=== PATIENT | male | born 1955 | race African-American/Black ===

== ENCOUNTER 2016-10-21 11:43 | Emergency (ER) | payer MEDICARE ==
[~2016-10-21] VITALS: Ht 190.5 cm; Wt 106.6 kg
[~2016-10-21 11:43] MED LIST: AMLO10TA2 PO; METO25TA9 PO; OMEP20CA9 PO; VALS320T2 PO
[2016-10-21] MEDS ORDERED: IV NORMAL SALINE 1000ML BAG 1,000 ML IV ONE (12:15)
[2016-10-21 12:25] LABS: BASO # 0.1 x10^3/uL (0.0-0.2); BASO % 1 % (0-3); EOS % 1 % (0-3); HEMATOCRIT 54.5 % (39.0-53.0); HEMOGLOBIN 17.9 g/dL (13.0-17.5); LYMPH # 2.4 x10^3/uL (1.0-4.8); LYMPH % 28 % (24-48); MEAN CORPUSCULAR HEMOGLOBIN 29 pg (25-35); MEAN CORPUSCULAR HGB CONC 33 g/dL (31-37); MEAN CORPUSCULAR VOLUME 87 fL (79-100); MONO % 7 % (0-9); NEUT % 63 % (31-73); PLATELET COUNT 164 x10^3/uL (140-400); RED BLOOD COUNT 6.27 x10^6/uL (4.30-5.70); RED CELL DISTRIBUTION WIDTH 14.6 % (11.5-14.5); WHITE BLOOD COUNT 8.5 x10^3/uL (4.0-11.0)
[2016-10-21 12:37] LABS: CALCIUM 9.3 mg/dL (8.5-10.1); CREATININE 1.3 mg/dL (0.7-1.3); GFR 67.9; POTASSIUM 4.3 mmol/L (3.5-5.1)
[2016-10-21 12:43] LABS: ALBUMIN 3.7 g/dL (3.4-5.0); ALBUMIN/GLOBULIN RATIO 0.8 (1.0-1.7); TOTAL BILIRUBIN 0.8 mg/dL (0.2-1.0); TOTAL PROTEIN 8.1 g/dL (6.4-8.2)
--- NOTE | 2016-10-21 12:47 | RAD ---
Portable AP upright view CXR: Clinical indications: Dizziness and lightheadedness today. Comparison: February 14, 2004 Findings: No acute lung infiltrate or pleural effusion or pulmonary edema or lung mass or pneumothorax is seen. The heart size, pulmonary vasculature, mediastinum and both boubacar are unremarkable. Impression: No acute radiographic abnormality is seen.
--- NOTE | 2016-10-21 13:01 | ED.ADGEN ---
Past Medical History Past Medical History: GERD, Hypertension, Other Additional Past Medical Histor: "Adnoid trouble" Past Surgical History: Other Additional Past Surgical Histo: Cyst near L)eyebrow removed x2. Additional Information: 1 TO 2 PPD Alcohol Use: Occasionally Drug Use: None Adult General Chief Complaint Chief Complaint: DIZZY/LIGHT HEADED HPI HPI Patient is a 61 year old man, history of hypertension, GERD, who presents to the emergency department with a complaint of lightheadedness and dizziness that began yesterday. Patient states that he was out of the heat yesterday, had been helping a friend [place], states that he had eaten fried chicken, not had anything to drink throughout the day, and began feeling progressively more lightheaded and dizzy. He states he did drink water that evening and afternoon, however he remains dizzy today, describes it as a spinning of the room, also a lightheaded sensation denies any passing out. Some mild shortness of breath as well, which is now resolved, denies any chest pain, any nausea or vomiting, any focal weakness, numbness or tingling. States he is concerned that he has had a "mini stroke", as he is "run in my family". Denies any vision changes, states he did have a mild headache which is improved at this time. States he has been compliant with all of his medications for both a pressure and GERD. Denies any injuries, syncope, any use of drugs, or alcohol, is a pack-a-day smoker for many years. Review of Systems Review of Systems Constitutional: Denies fever or chills. [] Generalized malaise and weakness. Lightheadedness. Eyes: Denies change in visual acuity. [] HENT: Denies nasal congestion or sore throat. [] Respiratory: Denies cough, mild shortness of breath now resolved. Cardiovascular: Denies chest pain or edema. [] GI: Denies abdominal pain, nausea, vomiting, bloody stools or diarrhea. [] : Denies dysuria. [] Musculoskeletal: Denies back pain or joint pain. [] Integument: Denies rash. [] Neurologic: Mild headache, frontal, dizziness, no focal weakness or sensory changes. [] Endocrine: Denies polyuria or polydipsia. [] Lymphatic: Denies swollen glands. [] Psychiatric: Denies depression or anxiety. [] Current Medications Current Medications Current Medications Medications (Trade) Dose Ordered Sig/Tameka Start Time Stop Time Status Last Admin Dose Admin Meclizine HCl (Antivert) 25 mg 1X ONCE 10/21/16 15:45 10/21/16 15:46 DC 10/21/16 15:40 25 MG Sodium Chloride 1,000 ml @ 1,000 mls/hr 1X ONCE 10/21/16 12:15 10/21/16 13:14 DC 10/21/16 12:21 1,000 MLS/HR Allergies Allergies Allergies Coded Allergies Type Severity Reaction Last Updated Verified penicillin Allergy Intermediate Hives. 08/11/15 Yes Physical Exam Physical Exam Constitutional: Well developed, well nourished, no acute distress, non-toxic appearance. [] HENT: Normocephalic, atraumatic, bilateral external ears normal, oropharynx moist, no oral exudates, nose normal. [] Eyes: PERRLA, EOMI, conjunctiva normal, no discharge. [] Neck: Normal range of motion, no tenderness, supple, no stridor. [] Cardiovascular:Heart rate regular rhythm, no murmur, S1, S2, no rubs or gallops. [] Lungs & Thorax: Bilateral breath sounds clear to auscultation, no wheezing, rhonchi, rales. No chest wall crepitus or tenderness. [] Abdomen: Bowel sounds normal, soft, no tenderness, no rebound, rigidity, no guarding, no masses, no pulsatile masses. [] Skin: Warm, dry, no erythema, no rash. [] Back: No tenderness, no CVA tenderness. [] Extremities: No tenderness, no cyanosis, no clubbing, ROM intact, no edema. Negative Homans sign. [] Neurologic: Alert and oriented X 3, normal motor function, normal sensory function, no focal deficits noted. [] Psychologic: Affect normal, judgement normal, mood normal. [] Current Patient Data Vital Signs Vital Signs Date Time Temp Pulse Resp B/P (MAP) Pulse Ox O2 Delivery O2 Flow Rate FiO2 10/21/16 15:20 60 138/82 (100) 94 Room Air 10/21/16 11:53 97.5 18 97.5 Lab Values Laboratory Tests Test 10/21/16 12:13 10/21/16 14:30 White Blood Count 8.5 x10^3/uL (4.0-11.0) Red Blood Count 6.27 x10^6/uL (4.30-5.70) H Hemoglobin 17.9 g/dL (13.0-17.5) H Hematocrit 54.5 % (39.0-53.0) H Mean Corpuscular Volume 87 fL (79-100) Mean Corpuscular Hemoglobin 29 pg (25-35) Mean Corpuscular Hemoglobin Concent 33 g/dL (31-37) Red Cell Distribution Width 14.6 % (11.5-14.5) H Platelet Count 164 x10^3/uL (140-400) Neutrophils (%) (Auto) 63 % (31-73) Lymphocytes (%) (Auto) 28 % (24-48) Monocytes (%) (Auto) 7 % (0-9) Eosinophils (%) (Auto) 1 % (0-3) Basophils (%) (Auto) 1 % (0-3) Neutrophils # (Auto) 5.3 x10^3uL (1.8-7.7) Lymphocytes # (Auto) 2.4 x10^3/uL (1.0-4.8) Monocytes # (Auto) 0.6 x10^3/uL (0.0-1.1) Eosinophils # (Auto) 0.1 x10^3/uL (0.0-0.7) Basophils # (Auto) 0.1 x10^3/uL (0.0-0.2) Sodium Level 138 mmol/L (136-145) Potassium Level 4.3 mmol/L (3.5-5.1) Chloride Level 103 mmol/L (98-107) Carbon Dioxide Level 24 mmol/L (21-32) Anion Gap 11 (6-14) Blood Urea Nitrogen 25 mg/dL (8-26) Creatinine 1.3 mg/dL (0.7-1.3) Estimated GFR (Cockcroft-Gault) 67.9 BUN/Creatinine Ratio 19 (6-20) Glucose Level 142 mg/dL (70-99) H Calcium Level 9.3 mg/dL (8.5-10.1) Total Bilirubin 0.8 mg/dL (0.2-1.0) Aspartate Amino Transferase (AST) 19 U/L (15-37) Alanine Aminotransferase (ALT) 19 U/L (16-63) Alkaline Phosphatase 141 U/L (46-116) H Myoglobin 74 ng/mL (16-96) Troponin I Quantitative < 0.017 ng/mL (0.000-0.055) YE-Jqq-I-Type Natriuretic Peptide 37 pg/mL (0-124) Total Protein 8.1 g/dL (6.4-8.2) Albumin 3.7 g/dL (3.4-5.0) Albumin/Globulin Ratio 0.8 (1.0-1.7) L Urine Collection Type Void Urine Color Yellow Urine Clarity Clear Urine pH 5.5 Urine Specific [place] 1.025 Urine Protein Negative mg/dL (NEG-TRACE) Urine Glucose (UA) Negative mg/dL (NEG) Urine Ketones (Stick) Negative mg/dL (NEG) Urine Blood Negative (NEG) Urine Nitrite Negative (NEG) Urine Bilirubin Negative (NEG) Urine Urobilinogen Dipstick 1.0 mg/dL (0.2 mg/dL) Urine Leukocyte Esterase Negative (NEG) Urine RBC 0 /HPF (0-2) Urine WBC 0 /HPF (0-4) Urine Squamous Epithelial Cells None /LPF Urine Bacteria 0 /HPF (0-FEW) Urine Hyaline Casts Few /HPF Urine Mucus Mod /LPF Urine Opiates Screen Neg (NEG) Urine Methadone Screen Neg (NEG) Urine Barbiturates Neg (NEG) Urine Phencyclidine Screen Neg (NEG) Urine Amphetamine/Methamphetamine Neg (NEG) Urine Benzodiazepines Screen Neg (NEG) Urine Cocaine Screen Pos (NEG) Urine Cannabinoids Screen Neg (NEG) Urine Ethyl Alcohol Neg (NEG) Laboratory Tests 10/21/16 12:13 Laboratory Tests 10/21/16 12:13 EKG EKG EC: Sinus rhythm, heart rate 77 beats/minute, left axis deviation, QTC of 452, ME 186, QRS of 80 [] 98, no ST elevations or depressions, contour abnormality is noted in the inferior anterior lateral leads, T-wave inversions noted in V3 through V6, abnormal ECG. Does not meet STEMI criteria. As interpreted by me. Radiology/Procedures Radiology/Procedures [][facility] [address] [place] [address] IMAGING REPORT Signed PATIENT: SHAWNEE ESPINOZA ACCOUNT: [id number] : 1955 LOCATION: ER AGE: 61 SEX: M EXAM STATUS: PRE ER ORD. PHYSICIAN: ASUNCION BOND DO REASON: Dizziness/lightheadness PROCEDURE: PORTABLE CHEST 1V Portable AP upright view CXR: Clinical indications: Dizziness and lightheadedness today. Comparison: February 14, 2004 Findings: No acute lung infiltrate or pleural effusion or pulmonary edema or lung mass or pneumothorax is seen. The heart size, pulmonary vasculature, mediastinum and both boubacar are unremarkable. Impression: No acute radiographic abnormality is seen. DICTATED and SIGNED BY: FLORECITA NASH MD DATE: 10/21/16 124 CC: CLEMENTINA TORRES; ASUNCION BOND DO ~ [facility] [address] [place], [place] [id number] IMAGING REPORT Signed PATIENT: SHAWNEE ESPINOZA ACCOUNT: [id number] : 1955 LOCATION: ER AGE: 61 SEX: M EXAM STATUS: REG ER ORD. PHYSICIAN: ASUNCION BOND DO REASON: Dizziness PROCEDURE: CT HEAD WO CONTRAST Clinical indications: Dizziness today. History of hypertension. Technique: Noncontrast axial cross sectional scanning of the head was performed. PQRS Compliance Statement: One or more of the following individualized dose reduction techniques were utilized for this examination: 1. Automated exposure control 2. Adjustment of the mA and/or kV according to patient size 3. Use of iterative reconstruction technique Findings: No acute intracranial hemorrhage or midline shift or mass-effect or hydrocephalus or extra-axial fluid collection is seen. There is a moderate-sized old appearing infarct of the anterior basal ganglia and anterior limb of the internal capsule and the caudate nucleus and anterior centrum semiovale and anterior mane radiata on the right side. Additional areas of mild periventricular white matter hypodensity are seen consistent with chronic small vessel ischemic disease in this age group. A tiny infarct of the left thalamus is seen of indeterminate age. No skull fracture or pneumocephalus is seen. No opacification of the mastoid sinuses or the middle ear cavities is seen. There is a mucous retention cyst of the floor of the left maxillary sinus which measures 2.9 cm. The maxillary sinuses are not completely seen in this study. Impression: No acute intracranial hemorrhage is seen. 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 Tiny infarct of the left thalamus of indeterminate age. DICTATED and SIGNED BY: FLORECITA NASH MD DATE: 10/21/16 1864 CC: CLEMENTINA TORRES; ASUNCION BOND DO ~ Course & Med Decision Making Course & Med Decision Making Pertinent Labs and Imaging studies reviewed. (See chart for details) [] NIH stroke scale of 0 at this time, patient states that he is already feeling better. After discussion at bedside, will proceed with laboratory studies, and imaging of the head, to rule out potential occult abnormality. Chest x-ray also ordered. ECG obtained, with no acutely concerning findings. Patient received IV fluids in the ED. Resting comfortably. CT of the head reveals chronic changes, from CVA, and an indeterminately age small thalamic infarct. No acutely concerning findings identified. Patient's urinalysis is positive for cocaine. Patient did initially deny any drug use. I did speak to the patient, who stated that "I'm not embarrassed I do cocaine, I have done it since the 80s". I did discuss the patient that the drug screen in the emergency department was not attempted to embarrassed him, however it is pertinent as cocaine and other illicit substances have significant detrimental effects, and could cause heart attack stroke or other significant morbidity or mortality. Patient states he understands, states he is feeling well this time with resolution of his symptoms. I did discuss findings as above and examination with Dr. Pike of neurology, patient is not exhibiting any acutely concerning findings at this time, is ambulating without difficulty, and denies any complaints currently, he recommends follow-up with his primary care provider , continue education regarding drug abuse wrist, and use of meclizine. Patient did receive meclizine in the ED, as stated is ambulating without difficulty with resolution of his symptoms. Patient discharged home with clear and detailed return instructions, to stay well-hydrated, get plenty of rest, continue his home medications as directed by his primary care provider, as well as precautions with plan as above and prescription for meclizine. Rajivon Disclaimer Rajivon Disclaimer This electronic medical record was generated, in whole or in part, using a voice recognition dictation system. Departure Impression: Primary Impression: Dizziness Additional Impression: Cocaine abuse Disposition: HOME, SELF-CARE Condition: IMPROVED Scripts Meclizine Hcl (MECLIZINE HCL) 25 Mg Tablet 1 TAB PO PRN TID Y for DIZZINESS, #12 TAB Prov: ASUNCION BOND DO 10/21/16 Problem Qualifiers ASUNCION BOND DO Oct 21, 2016 13:01
--- NOTE | 2016-10-21 13:32 | RAD ---
Clinical indications: Dizziness today. History of hypertension. Technique: Noncontrast axial cross sectional scanning of the head was performed. RS Compliance Statement: One or more of the following individualized dose reduction techniques were utilized for this examination: 1. Automated exposure control 2. Adjustment of the mA and/or kV according to patient size 3. Use of iterative reconstruction technique Findings: No acute intracranial hemorrhage or midline shift or mass-effect or hydrocephalus or extra-axial fluid collection is seen. There is a moderate-sized old appearing infarct of the anterior basal ganglia and anterior limb of the internal capsule and the caudate nucleus and anterior centrum semiovale and anterior mane radiata on the right side. Additional areas of mild periventricular white matter hypodensity are seen consistent with chronic small vessel ischemic disease in this age group. A tiny infarct of the left thalamus is seen of indeterminate age. No skull fracture or pneumocephalus is seen. No opacification of the mastoid sinuses or the middle ear cavities is seen. There is a mucous retention cyst of the floor of the left maxillary sinus which measures 2.9 cm. The maxillary sinuses are not completely seen in this study. Impression: No acute intracranial hemorrhage is seen. 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 Tiny infarct of the left thalamus of indeterminate age.
[2016-10-21 14:42] LABS: BILIRUBIN,URINE NEGATIVE (NEG); GLUCOSE,URINE NEGATIVE (NEG); NITRITE,URINE NEGATIVE (NEG); PH,URINE 5.5; PROTEIN,URINE NEGATIVE (NEG-TRACE)
[2016-10-21 14:49] LABS: BACTERIA,URINE 0 /HPF (0-FEW); BARBITURATES NEG (NEG); BENZODIAZEPINES NEG (NEG); CANNABINOIDS NEG (NEG); COCAINE POS (NEG); METHADONE NEG (NEG); OPIATES NEG (NEG); PHENCYCLIDINE NEG (NEG); RBC,URINE 0 /HPF (0-2); WBC,URINE 0 /HPF (0-4)
[2016-10-21 15:20] VITALS: BP 138/82
[2016-10-21] MEDS ORDERED: MECLIZINE HCL 12.5 MG TABLET. PO ONE (15:45)
[2016-10-21] MEDS ORDERED: MECL25TA3 PO (15:53)
--- NOTE | 2016-10-22 09:16 | EKG ---
[facility] [address] [place] [address] Test Date: 2016-10-21 Test Time: 11:56:08 Pat Name: SHAWNEE ESPINOZA Department: Room: Gender: M Developmental Behavioral Physician: : 1955 Requested By: ASUNCION BOND Order Number: [id number] Reading MD: Samuel Nice Measurements Intervals [place] Rate: 77 P: 40 MO: 186 QRS: -40 QRSD: 98 T: 19 QT: 398 QTc: 452 Interpretive Statements SINUS RHYTHM ABNORMAL LEFT AXIS DEVIATION LEFT ANTERIOR FASCICULAR BLOCK T ABNORMALITY IN ANTEROLATERAL LEADS Electronically Signed On 10-22-2016 15:08:09 CDT by Samuel Nice
== END 2016-10-21 16:00 | disposition home or self-care (01) ==
LOC: ER 11:43
DX: R42 Dizziness and giddiness (principal); F14.10 Cocaine abuse, uncomplicated; R06.02 Shortness of breath; R51 Headache; I10 Essential (primary) hypertension; K21.9 Gastro-esophageal reflux disease without esophagitis; F17.200 Nicotine dependence, unspecified, uncomplicated; Z88.0 Allergy status to penicillin
CPT/HCPCS: 36415; 70450; 71010; 80053; 80307; 81001; 83874; 83880; 84484; 85027; 93005; 96360; 96361; 99285; J7030; J8597; G0479

== ENCOUNTER 2018-07-22 14:39 | Emergency (ER) | payer OTHER ==
[~2018-07-22] VITALS: Ht 188 cm; Wt 106.6 kg
[~2018-07-22 14:39] MED LIST changes: -AMLO10TA2 PO; +AMLO10TA8 PO; +MECL25TA3 PO; +METO-239 PO; -METO25TA9 PO; +OMEP20CA10 PO; -OMEP20CA9 PO
[2018-07-22 15:30] VITALS: BP 139/96
[2018-07-22] MEDS ORDERED: LIDOCAINE 1% PF 2 ML VIAL. INJ ONE (15:45)
[2018-07-22] MEDS ORDERED: CEPH500C PO (15:54)
--- NOTE | 2018-07-22 15:55 | PHYS DOC ---
Past Medical History Past Medical History: GERD, Hypertension, Other Additional Past Medical Histor: "Adnoid trouble" (YAJAIRA JOHNSON APRN) Past Surgical History: Other Additional Past Surgical Histo: Cyst near L)eyebrow removed x2. (YAJAIRA JOHNSON APRN) Alcohol Use: Occasionally Drug Use: None (YAJAIRA JOHNSON APRN) Adult General Chief Complaint Chief Complaint: FOOT INJURY PAIN [facility] HPI Patient is a 62 year old male presents for evaluation of possible ingrown toenail on his left foot, fourth toe. States that he tried to make an appointment of the maintenance service technician today but was told because he has not seen his primary care doctor within the past 6 months they would not see him. He has very thick toenails and reports he uses wire cutters to cut his toenails at home. Denies any drainage from around the toenail of the left foot. Tetanus is up-to-date. (YAJAIRA JOHNSON APRN) Review of Systems Review of Systems Constitutional: Denies fever or chills [] Eyes: Denies change in visual acuity, redness, or eye pain [] HENT: Denies nasal congestion or sore throat [] Respiratory: Denies cough or shortness of breath [] Cardiovascular: No additional information not addressed in HPI [] GI: Denies abdominal pain, nausea, vomiting, bloody stools or diarrhea [] : Denies dysuria or hematuria [] Musculoskeletal: 4TH LEFT TOENAIL THICKENED, FUNGUS, ERYTHEMA AROUND EPONYCHIUM. ALL TOENAILS ARE THICKENED AND LONG [] Integument: Denies rash or skin lesions [] Neurologic: Denies headache, focal weakness or sensory changes [] Endocrine: Denies polyuria or polydipsia [] All other systems were reviewed and found to be within normal limits, except as documented in this note. (YAJAIRA JOHNSON APRN) Current Medications Current Medications Current Medications Medications (Trade) Dose Ordered Sig/Tameka Start Time Stop Time Status Last Admin Dose Admin Lidocaine HCl (Xylocaine-Mpf 1% 2ml Vial) 2 ml 1X ONCE 07/22/18 15:45 07/22/18 15:46 DC 07/22/18 15:43 2 ML (JOHAN VASQUEZ MD) Allergies Allergies Allergies Coded Allergies Type Severity Reaction Last Updated Verified penicillin Allergy Intermediate Hives. 08/11/15 Yes (JOHAN VASQUEZ MD) Physical Exam Physical Exam Constitutional: Well developed, well nourished, no acute distress, non-toxic appearance. [] Skin: Warm, dry, no rash. [] Extremities: LEFT TOE PARONYCHIA AROUND NAIL, NO FLUCTUANCE OR DRAINAGE NOTED ON EXAM, FUNGAL THICKENED TOENAILS, no cyanosis, no clubbing, ROM intact, no edema. [] Neurologic: Alert and oriented X 3, normal motor function, normal sensory function, no focal deficits noted. [] Psychologic: Affect normal, judgement normal, mood normal. [] (YAJAIRA JOHNSON APRN) Current Patient Data Vital Signs Vital Signs Date Time Temp Pulse Resp B/P (MAP) Pulse Ox O2 Delivery O2 Flow Rate FiO2 07/22/18 15:30 98.4 53 18 139/96 (110) 94 Room Air 98.4 (JOHAN VASQUEZ MD) EKG EKG [] (YAJAIRA JOHNSON APRN) Radiology/Procedures Radiology/Procedures [] (YAJAIRA JOHNSON APRN) Impressions: Incision and drainage paronychia left fourth toenail, 1 mL lidocaine injected, small incision made with 11 blade scalpel, no drainage, dressing placed (YAJAIRA JOHNSON APRN) Course & Med Decision Making Course & Med Decision Making Pertinent Labs and Imaging studies reviewed. (See chart for details) [Patient was referred for follow-up with podiatry, stable for discharge home] (YAJAIRA JOHNSON APRN) Course & Med Decision Making Staff Physician Addendum: I was working in the ER during the course of this patient's visit. I was available for consultation as needed, but I was not directly involved in the care of this patient. (JOHAN VASQUEZ MD) Dragon Disclaimer Dragon Disclaimer This electronic medical record was generated, in whole or in part, using a voice recognition dictation system. (YAJAIRA JOHNSON APRN) Departure Departure Impression: Primary Impression: Paronychia Disposition: 01 HOME, SELF-CARE Condition: STABLE Referrals: CLEMENTINA TORRES (PCP) Patient Instructions: Paronychia, [id number] Scripts Cephalexin (CEPHALEXIN) 500 Mg Capsule 1 CAP PO TID for 7 Days, #21 CAP Prov: YAJAIRA JOHNSON FIELD OPERATIONS FARM MANAGER 07/22/18 YAJAIRA JOHNSON FIELD OPERATIONS FARM MANAGER Jul 22, 2018 15:55 JOHAN VASQUEZ MD Jul 23, 2018 18:40
== END 2018-07-22 16:12 | disposition home or self-care (01) ==
LOC: ER 14:39
DX: L03.032 Cellulitis of left toe (principal); I10 Essential (primary) hypertension; K21.9 Gastro-esophageal reflux disease without esophagitis; Z88.0 Allergy status to penicillin
CPT/HCPCS: 10060; 99283

== ENCOUNTER 2021-02-07 06:23 | Inpatient (IN) | payer MEDICARE, OTHER ==
[~2021-02-07] VITALS: Ht 188 cm; Wt 93.4 kg
[~2021-02-07 06:23] MED LIST changes: +AMLO-187 PO; -AMLO10TA8 PO; +CEPH500C PO; +MECL-75 PO; -MECL25TA3 PO; -OMEP20CA10 PO; +OMEP20CA16 PO
--- NOTE | 2021-02-07 07:11 | RAD ---
XR CHEST 1V Clinical Indication: Reason: soa, dizzy when lying flat / Spl. Instructions: / History: Comparison: AP chest October 21, 2016. Findings: The cardiomediastinal silhouette is normal. There are diffuse bilateral interstitial opacities. There are Jacqueline B lines in the right lung base. There is no pneumothorax. No pleural effusion is apprecia aashish. No acute bone abnormality. IMPRESSION: Diffuse bilateral interstitial opacities may be pulmonary edema. Interstitial pneumonia a secondary c onsideration. Electronically signed by: Raúl Gray MD (02/07/2021 7:08 AM) [facility]
[2021-02-07 07:20] LABS: INFLUENZA A PATIENT NEGATIVE (NEGATIVE); INFLUENZA B PATIENT NEGATIVE (NEGATIVE)
--- NOTE | 2021-02-07 07:30 | PHYS DOC ---
Past Medical History Past Medical History: GERD, Hypertension, Other Additional Past Medical Histor: "Adnoid trouble" Past Surgical History: Other Additional Past Surgical Histo: Cyst near L)eyebrow removed x2, skin graft to leg Smoking Status: Current Every Day Smoker Additional Information: 2 ppd Alcohol Use: None Drug Use: None Social History Narrative: occasional use General Adult EDM: Chief Complaint: SHORTNESS OF BREATH HPI: HPI: 65-year-old male past medical history of COPD and hypertension, presents the ED with complaints of shortness of breath for the past week, worse when lying down on his left side. Also reports intermittent episodes of dizziness, productive cough and nasal congestion. Patient is not vaccinated for Covid. Review of Systems: Review of Systems: Constitutional: Denies fever or chills. [] Eyes: Denies change in visual acuity. [] HENT: Denies rhinorrhea or sore throat. [] Respiratory: Denies hemoptysis or dry cough Cardiovascular: Denies chest pain or edema. [] GI: Denies abdominal pain, nausea, vomiting, bloody stools or diarrhea. [] : Denies dysuria or hematuria Musculoskeletal: Denies back pain or joint pain. [] Integument: Denies rash or diaphoresis Neurologic: Denies headache, focal weakness or sensory changes. [] Endocrine: Denies polyuria or polydipsia. [] Lymphatic: Denies swollen glands. [] Psychiatric: Denies depression or anxiety. [] Heart Score: C/O Chest Pain: No Risk Factors: Risk Factors: DM, Current or recent (<one month) smoker, HTN, HLP, family history of CAD, obesity. Risk Scores: Score 0 - 3: 2.5% MACE over next 6 weeks - Discharge Home Score 4 - 6: 20.3% MACE over next 6 weeks - Admit for Clinical Observation Score 7 - 10: 72.7% MACE over next 6 weeks - Early Invasive Strategies Allergies: Allergies: Allergies Coded Allergies Type Severity Reaction Last Updated Verified penicillin Allergy Intermediate Hives. 02/07/21 Yes Physical Exam: PE: Constitutional: Well developed, well nourished, no acute distress, non-toxic appearance, hypertensive HENT: Normocephalic, atraumatic, Eyes: EOMI, conjunctiva normal, no discharge. Neck: Normal range of motion, supple, Cardiovascular: S1/2 present, regular rhythm Lungs & Thorax: Speaking in full sentences, bilateral equal chest rise, no tachypnea or increased work of breathing Abdomen: soft, no tenderness, Skin: Warm, dry, no erythema, no rash. [] Back: No tenderness, no CVA tenderness. [] Extremities: No tenderness, no cyanosis, no unilateral lower extremity edema Neurologic: Alert and oriented X 3, normal motor function, normal sensory function, no focal deficits noted. [] Psychologic: Affect normal, judgement normal, mood normal. [] Current Patient Data: Labs: Laboratory Tests Test 02/07/21 06:55 Influenza Type A Antigen Negative (NEGATIVE) Influenza Type B Antigen Negative (NEGATIVE) Vital Signs: Vital Signs Date Time Temp Pulse Resp B/P (MAP) Pulse Ox O2 Delivery O2 Flow Rate FiO2 02/07/21 07:04 75 28 190/117 (141) 93 Room Air 02/07/21 06:57 97.4 97.4 EKG: EK bigeminy present, sinus rhythm 75 bpm, no axis deviation, QTC 479, cannot appreciate any ST or ST depressions, T wave inversion V4 through V6, I & aVL 0650 bigeminy present, sinus rhythm at 74 bpm, no axis deviation, QTC 488, T wave inversion V4 through V6, 1 and aVL, cannot appreciate any ST depressions or ST depressions Radiology/Procedures: Radiology/Procedures: []IMAGING REPORT Signed [id number] : 1955 LOCATION: ER AGE: 65 SEX: M EXAM STATUS: REG ER ORD. PHYSICIAN: MARLYS RIOS DO REASON: DIZZINESS PROCEDURE: CT HEAD WO CONTRAST EXAM: CT head without contrast INDICATION: Dizziness COMPARISON: CT head 10/21/2016 TECHNIQUE: Axial CT imaging through the head without intravenous contrast. One or more of the following individualized dose reduction techniques were utilized for this examination: 1. Automated exposure control 2. Adjustment of the mA and/or kV according to patient size 3. Use of iterative reconstruction technique. FINDINGS: The ventricles and sulci are prominent. There is unchanged mild periventricular and deep white matter hypoattenuation. Unchanged old lacunar infarct in the right basal ganglia. No intracranial hemorrhage, acute infarct, or mass lesion. There is a mucosal retention cyst in the left maxillary sinus. Mild mucosal thickening in the right maxillary sinus. Mastoid air cells are clear. The calvarium is intact. Globes and orbits are intact. IMPRESSION: 1. No acute intracranial abnormality. 2. Unchanged mild volume loss and and chronic microvascular ischemic changes. Electronically signed by: Joleen Huff MD (02/07/2021 7:59 AM) [facility] DICTATED and SIGNED BY: JOLEEN HUFF MD DATE: 02/07/21 [id number] IMAGING REPORT Signed PATIENT: SHAWNEE MINERCCOUNT: [id number] : 1955 LOCATION: ER AGE: 65 SEX: M EXAM STATUS: PRE ER ORD. PHYSICIAN: MARLYS RIOS DO REASON: soa, dizzy when lying flat PROCEDURE: PORTABLE CHEST 1V XR CHEST 1V Clinical Indication: Reason: soa, dizzy when lying flat / Spl. Instructions: / History: Comparison: AP chest October 21, 2016. Findings: The cardiomediastinal silhouette is normal. There are diffuse bilateral interstitial opacities. There are Jacqueline B lines in the right lung base. There is no pneumothorax. No pleural effusion is appreciated. No acute bone abnormality. IMPRESSION: Diffuse bilateral interstitial opacities may be pulmonary edema. Interstitial pneumonia a secondary consideration. Electronically signed by: Raúl Gray MD (02/07/2021 7:08 AM) [facility] DICTATED and SIGNED BY: RAÚL GRAY MD DATE: 02/07/21 [id number] 0 Course & Med Decision Making: Course & Med Decision Making Pertinent Labs and Imaging studies reviewed. (See chart for details) COVID-19 CRITERIA: The patient was evaluated during the global COVID-19 pandemic, and that diagnosis was suspected/considered upon their initial presentation. Their evaluation, treatment and testing was consistent with current guidelines for patients who present with complaints or symptoms that may be related to COVID-19. Concern for symptomatic hypertension with pulmonary edema, not requiring nasal oxygen. EKG shows bigeminy, no ST elevations. Will admit to medicine for further medical management. Cardiology consultation placed. I have spoken with the patient and/or caregivers. I have explained the patient's condition, diagnosis and treatment plan based on the information available to me at this time. I have answered the patient's and/or caregivers questions and answered any concerns. The patient and/or caregivers have as good an understanding of the patient's diagnosis, condition and treatment plan as can be expected at this point. The patient has been stabilized within the capability of the emergency department. The patient will be transported for further care and management or will be moved to an observation or inpatient service. I have communicated with the staff or medical practitioner taking over this patient's care. Dragon Disclaimer: Dragon Disclaimer: This electronic medical record was generated, in whole or in part, using a voice recognition dictation system. Departure Departure Impression: Primary Impression: Pulmonary edema Additional Impressions: Uncontrolled hypertension Dyspnea Person under investigation for COVID-19 Bigeminy Disposition: 09 ADMITTED INPATIENT Admitting Physician: KRUNAL (Dr. Matias) Condition: GUARDED Referrals: CLEMENTINA TORRES (PCP) MARLYS RIOS DO Feb 07, 2021 07:30
[2021-02-07 07:33] LABS: BASO # 0.1 x10^3/uL (0.0-0.2); BASO % 1 % (0-3); EOS % 0 % (0-3); HEMATOCRIT 51.5 % (39.0-53.0); LYMPH # 2.1 x10^3/uL (1.0-4.8); LYMPH % 22 % (24-48); MEAN CORPUSCULAR HEMOGLOBIN 29 pg (25-35); MEAN CORPUSCULAR HGB CONC 33 g/dL (31-37); MEAN CORPUSCULAR VOLUME 87 fL (79-100); MONO # 0.9 x10^3/uL (0.0-1.1); MONO % 9 % (0-9); NEUT # 6.4 x10^3/uL (1.8-7.7); NEUT % 68 % (31-73); PLATELET COUNT 151 x10^3/uL (140-400); RED CELL DISTRIBUTION WIDTH 13.9 % (11.5-14.5); WHITE BLOOD COUNT 9.5 x10^3/uL (4.0-11.0)
[2021-02-07 07:52] LABS: ALBUMIN 3.3 g/dL (3.4-5.0); CALCIUM 8.7 mg/dL (8.5-10.1); CREATININE 1.2 mg/dL (0.7-1.3); DIRECT BILIRUBIN 0.2 mg/dL (0.0-0.2); GFR 73.5; POTASSIUM 4.3 mmol/L (3.5-5.1); TOTAL BILIRUBIN 0.7 mg/dL (0.2-1.0)
--- NOTE | 2021-02-07 08:02 | RAD ---
EXAM: CT head without contrast INDICATION: Dizziness COMPARISON: CT head 10/21/2016 TECHNIQUE: Axial CT imaging through the head without intravenous contrast. One or more of the following individualized dose reduction techniques were utilized for this examinat ion: 1. Automated exposure control 2. Adjustment of the mA and/or kV according to patient size 3. Use of iterative reconstruction technique. FINDINGS: The ventricles and sulci are prominent. There is unchanged mild periventricular and deep white matter hypoattenuation. Unchanged old lacunar infarct in the right basal ganglia. No intracranial hemorrhag e, acute infarct, or mass lesion. There is a mucosal retention cyst in the left maxillary sinus. Mild mucosal thickening in the right maxillary sinus. Mastoid air cells are clear. The calvarium is intac t. Globes and orbits are intact. IMPRESSION: 1. No acute intracranial abnormality. 2. Unchanged mild volume loss and and chronic microvascular ischemic changes. Electronically signed by: Joleen Huff MD (02/07/2021 7:59 AM) [facility]
[2021-02-07] MEDS ORDERED: hydrALAZINE 20 MG/ML VIAL. IVP ONE (09:30)
--- NOTE | 2021-02-07 09:35 | EKG ---
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
--- NOTE | 2021-02-07 12:18 | PDOC2 ---
ARIANNE GALLARDO ELECTRICAL PRODUCTS ENGINEER 02/07/21 1218: CARDIAC CONSULT DATE OF CONSULT Date of Consult DATE: 02/07/21 TIME: 12:16 REASON FOR CONSULT Reason for Consult: CHF REFERRING PHYSICIAN Referring Physician: Dr. Russell SOURCE Source: Chart review, Patient HISTORY OF PRESENT ILLNESS HISTORY OF PRESENT ILLNESS This is a 65 yo male who presented secondary to shortness of breath. Reports he has been short of breath for the last several days. Has progressively worsened. Associated with orthopnea. No significant LE edema. Denies any chest pain, palpitations, diaphoresis, or nausea/vomiting. Reports he had experienced dizz iness upon exertion as he gets very short of breath. No previous h/o CHF reported. Blood pressure significantly elevated upon arrival; reports compliance with medications. PAST MEDICAL HISTORY Cardiovascular: HTN Pulmonary: COPD GI: GERD PAST SURGICAL HISTORY Past Surgical History: No pertinent history FAMILY HISTORY Family History: Hypertension SOCIAL HISTORY Smoke: 1 pack per day ALCOHOL: none Drugs: None Lives: Alone ALLERGIES ALLERGIES: Coded Allergies: penicillin (Verified Allergy, Intermediate, Hives. , 02/07/21) ROS Review of System 14 point ROS conducted with pertinent positives noted above in HPI PHYSICAL EXAM General: Alert, Oriented X3, Cooperative, mild distress HEENT: Atraumatic, Mucous membr. moist/pink Lungs: Other (crackles ) Heart: Regular rate (SR with frequent PVCs) Abdomen: Soft Extremities: Other (trace pedal edema ) Skin: No significant lesion Neuro: Normal speech, Sensation intact Psych/Mental Status: Mental status NL, Mood NL MUSCULOSKELETAL: Osteoarthritic changes both hands VITALS/I&O VITALS/I&O: Vital Signs Date Time Temp Pulse Resp B/P (MAP) Pulse Ox O2 Delivery O2 Flow Rate FiO2 02/07/21 09:30 82 28 133/64 (87) 95 Room Air 02/07/21 06:57 97.4 97.4 LABS Lab: Laboratory Tests Test 02/07/21 06:55 02/07/21 07:15 Influenza Type A Antigen Negative (NEGATIVE) Influenza Type B Antigen Negative (NEGATIVE) SARS-CoV-2 Antigen (Rapid) Negative (NEGATIVE) White Blood Count 9.5 x10^3/uL (4.0-11.0) Red Blood Count 5.90 x10^6/uL (4.30-5.70) H Hemoglobin 17.0 g/dL (13.0-17.5) Hematocrit 51.5 % (39.0-53.0) Mean Corpuscular Volume 87 fL (79-100) Mean Corpuscular Hemoglobin 29 pg (25-35) Mean Corpuscular Hemoglobin Concent 33 g/dL (31-37) Red Cell Distribution Width 13.9 % (11.5-14.5) Platelet Count 151 x10^3/uL (140-400) Neutrophils (%) (Auto) 68 % (31-73) Lymphocytes (%) (Auto) 22 % (24-48) L Monocytes (%) (Auto) 9 % (0-9) Eosinophils (%) (Auto) 0 % (0-3) Basophils (%) (Auto) 1 % (0-3) Neutrophils # (Auto) 6.4 x10^3/uL (1.8-7.7) Lymphocytes # (Auto) 2.1 x10^3/uL (1.0-4.8) Monocytes # (Auto) 0.9 x10^3/uL (0.0-1.1) Eosinophils # (Auto) 0.0 x10^3/uL (0.0-0.7) Basophils # (Auto) 0.1 x10^3/uL (0.0-0.2) Sodium Level 140 mmol/L (136-145) Potassium Level 4.3 mmol/L (3.5-5.1) Chloride Level 106 mmol/L (98-107) Carbon Dioxide Level 24 mmol/L (21-32) Anion Gap 10 (6-14) Blood Urea Nitrogen 16 mg/dL (8-26) Creatinine 1.2 mg/dL (0.7-1.3) Estimated GFR (Cockcroft-Gault) 73.5 Glucose Level 109 mg/dL (70-99) H Calcium Level 8.7 mg/dL (8.5-10.1) Total Bilirubin 0.7 mg/dL (0.2-1.0) Direct Bilirubin 0.2 mg/dL (0.0-0.2) Aspartate Amino Transferase (AST) 16 U/L (15-37) Alanine Aminotransferase (ALT) 23 U/L (16-63) Alkaline Phosphatase 124 U/L (46-116) H Creatine Kinase 99 U/L (39-308) Troponin I High Sensitivity 50 ng/L (4-75) UW-Wui-H-Type Natriuretic Peptide 3218 pg/mL (0-124) H Total Protein 7.0 g/dL (6.4-8.2) Albumin 3.3 g/dL (3.4-5.0) L Laboratory Tests 02/07/21 07:15 Laboratory Tests 02/07/21 07:15 ASSESSMENT/PLAN ASSESSMENT/PLAN 1. Acute respiratory failure secondary to CHF, AECOPD with continued toba ccoism. discussed/encouraged cessation 2. Acute CHF with possible diastolic dysfunction 3. Hypertensive urgency 4. Arrhythmia; bigeminal PVC's noted on EKG. Recommendations Diuresis with monitoring of renal function Echo to assess LV systolic function Resume home antiHTN therapy Hydralazine IV PRN Supportive care DANYELL VILLASENOR MD 02/07/21 1629: CARDIAC CONSULT ASSESSMENT/PLAN ASSESSMENT/PLAN Patient seen and examined. Agree with CREDENTIALING ANALYST's assessment and plan. Acute respiratory failure secondary to combination of acute COPD exacerbation and acute on chronic diastolic heart failure Continue diuresis Continue management of acute COPD exacerbation per primary team Resume home antihypertensives and titrate for better blood pressure control Check 2D echo to assess LV systolic function Thank you for your consultation ARIANNE GALLARDO APRN Feb 07, 2021 12:18 DANYELL VILLASENOR MD Feb 07, 2021 16:29
[2021-02-07 13:00] VITALS: BP 158/113
[2021-02-07] MEDS ORDERED: FUROSEMIDE 40 MG/4 ML VIAL. IVP ONE (13:00)
--- NOTE | 2021-02-07 13:10 | NUR ---
PATIENT ARRIVED ON THE UNIT PER W/C FROM THE ED, PATIENT ALERT AND VERBALLY RESPONSIVE BUT SOB, VITALS OBTAINED PER ELECTRICAL AND ELECTRONIC ASSEMBLER AND ARE FOLLOWS; 158/110,21,73 93% ON RA, ARIANNE ROWE ON THE UNIT AND WILL SEE PATIENT AND PLACE ORDERS, HEART MONITOR APPLIED WILL MONITOR.
[2021-02-07] MEDS ORDERED: hydrALAZINE 20 MG/ML VIAL. IVP PRN (14:00)
[2021-02-07] MEDS ORDERED: FUROSEMIDE 40 MG/4 ML VIAL. IVP SCH (14:00)
[2021-02-07] MEDS ORDERED: POTASSIUM CHLORIDE 20 MEQ TABLET.ER. PO ONE (14:00)
--- NOTE | 2021-02-07 14:14 | EKG ---
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
[2021-02-07 15:00] VITALS: BP 132/87
[2021-02-07] MEDS ORDERED: LORazepam 0.5 MG TABLET PO PRN (15:45)
[2021-02-07] MEDS ORDERED: DOCUSATE SODIUM 100 MG CAPSULE. PO PRN (15:45)
[2021-02-07] MEDS ORDERED: ACETAMINOPHEN 325 MG TABLET. PO PRN (15:45)
[2021-02-07] MEDS ORDERED: ONDANSETRON PF 4 MG/2 ML VIAL. IVP PRN (15:45)
[2021-02-07] MEDS ORDERED: ZOLPIDEM 5 MG TABLET. PO PRN (15:45)
[2021-02-07] MEDS ORDERED: DEXTROSE 50% 25 GM / 50ML DISP.SYRIN. IV PRN (15:45)
[2021-02-07] MEDS ORDERED: SENNOSIDES 8.6 MG TABLET PO PRN (15:45)
[2021-02-07] MEDS ORDERED: PROCHLORPERAZINE 10 MG/2 ML VIAL. IV PRN (15:45)
--- NOTE | 2021-02-07 15:48 | PDOC1 ---
History and Physical Date of Service: DOS: DATE: 02/07/21 TIME: 15:41 Chief Complaint: Chief Complain: Shortness of breath History of Present Illness: HPI: History obtained from discussion with the ED physician and chart review: 65-year-old female with past medical history of hypertension, COPD, GERD who comes in with shortness of breath for the past week. There is orthopnea and exertional dyspnea. Progressively worsened. No lower extremity edema. He also endorses some dizziness upon exertion. No history of CHF in the past. In the ED blood pressure was 198/97. Saturating 93% on room air. Denies chest pain, palpitations, syncope, nausea vomiting, fevers chills, diarrhea, dysuria or hematuria. Of note, Patient is not vaccinated for Covid Past Medical/Surgical History: PMH/PSH: Past Medical History: GERD, Hypertension Past Surgical History: Cyst near L)eyebrow removed x2, skin graft to leg Allergies: Allergies: Coded Allergies: penicillin (Verified Allergy, Intermediate, Hives. , 02/07/21) Family History: Family History: Reviewed with no relevant findings Social History: Social History: Smoking Status: Current Every Day Smoker Additional Information: 2 ppd Alcohol Use: None Drug Use: None Social History Narrative: occasional use Current Medications: Current Medications Current Medications Hydralazine HCl (Apresoline Inj) 20 mg 1X ONCE IVP Last administered on 02/07/21at 09:30; Start 02/07/21 at 09:30; Stop 02/07/21 at 09:31; Status DC Furosemide (Lasix) 40 mg 1X ONCE IVP Last administered on 02/07/21at 13:27; Start 02/07/21 at 13:00; Stop 02/07/21 at 13:02; Status DC Potassium Chloride (Klor-Con) 20 meq 1X ONCE PO ; Start 02/07/21 at 14:00; Stop 02/07/21 at 14:01; Status DC Furosemide (Lasix) 40 mg BID92 IVP ; Start 02/07/21 at 14:00; Stop 02/07/21 at 13:55; Status DC Hydralazine HCl (Apresoline Inj) 10 mg PRN Q4HRS PRN IVP ELEVATED BP, SEE COMMENTS; Start 02/07/21 at 14:00 Furosemide (Lasix) 40 mg BID92 IVP ; Start 02/08/21 at 09:00 Amlodipine Besylate (Norvasc) 10 mg DAILY PO ; Start 02/07/21 at 15:00 Metoprolol Succinate (Toprol Xl) 25 mg DAILY PO ; Start 02/07/21 at 15:00 Pantoprazole Sodium (Protonix) 40 mg DAILYAC PO ; Start 02/08/21 at 07:30 Losartan Potassium (Cozaar) 100 mg DAILY PO ; Start 02/07/21 at 15:00 Aspirin (Ecotrin) 81 mg DAILYWBKFT PO ; Start 02/07/21 at 15:00 Active Scripts Active Keflex (Cephalexin) 500 Mg Capsule 1 Cap PO TID 7 Days Meclizine Hcl 25 Mg Tablet 1 Tab PO PRN TID PRN Reported Metoprolol Succinate ( Xl ) (Metoprolol Succinate) 25 Mg Tab.er.24h 25 Mg PO DAILY Omeprazole 20 Mg Capsule.dr 20 Mg PO DAILY Amlodipine Besylate 10 Mg Tablet 10 Mg PO DAILY Diovan (Valsartan) 320 Mg Tablet 320 Mg PO DAILY ROS: Review of Systems Review of System REVIEW OF SYSTEMS: GENERAL: Denies weakness SKIN: No bruising, hair changes or rashes. EYES: No blurred, double or loss of vision. NOSE AND THROAT: No history of nosebleeds, hoarseness or sore throat. HEART: No history of palpitations, chest pain or shortness of breath on exertion. LUNGS: Denies cough, hemoptysis, wheezing or shortness of breath. GASTROINTESTINAL: Denies changes in appetite, nausea, vomiting, diarrhea or constipation. GENITOURINARY: No history of frequency, urgency, hesitancy or nocturia. NEUROLOGIC: Denies history of numbness, tingling, or tremor. PSYCHIATRIC: No history of panic, anxiety or depression. ENDOCRINE: No history of heat or cold intolerance, polyuria or polydipsia. EXTREMITIES: Denies joint pain, pain on walking or stiffness. Physical Exam: Vital Signs: Vital Signs Date Time Temp Pulse Resp B/P (MAP) Pulse Ox O2 Delivery O2 Flow Rate FiO2 02/07/21 15:00 98.5 84 20 132/87 (102) 98 98.5 02/07/21 11:43 Room Air Physcial Exam: GEN: No apparent distress. Alert and oriented HEENT: Normal cephalic, atraumatic, external auditory canals are patent EYES: Extraocular muscles are intact, pupil are equally round and reactive to light and accommodation MUSCULOSKELETAL: Well developed , well nourished, good range of motion ENDOCRINE: No thyromegaly was palpated LYMPHATICS: No cervical chain or axillary nodes were noted HEMATOPOIETIC: No bruising NECK: Supple, no JVD, no thyromegaly was noted LUNGS: Clear to auscultation in all lung griggs without rhonchi or wheezing HEART: RRR, S!, S2 present. Peripheral pulses intact, no obvious murmurs noted ABDOMEN: Soft, nontender. Positive bowel sounds, no organomegaly, normal bowel sounds EXTREMITIES: Without clubbing, cyanosis, or edema. Pedal pulses intact. Negative Homans sign NEUROLOGIC: Normal speech and tone. A&O x 3, moves all extremities, no obvious focal deficits PSYCHIATRIC: Normal affect, normal mood. Stable SKIN: No ulcerations or rashes, good skin turgor, no jaundice VASCULAR: Good capillary refill, neurovascular bundle appears to be intact Labs: Labs: Laboratory Tests Test 02/07/21 06:55 02/07/21 07:15 02/07/21 13:30 Influenza Type A Antigen Negative (NEGATIVE) Influenza Type B Antigen Negative (NEGATIVE) SARS-CoV-2 Antigen (Rapid) Negative (NEGATIVE) White Blood Count 9.5 x10^3/uL (4.0-11.0) Red Blood Count 5.90 x10^6/uL (4.30-5.70) Hemoglobin 17.0 g/dL (13.0-17.5) Hematocrit 51.5 % (39.0-53.0) Mean Corpuscular Volume 87 fL (79-100) Mean Corpuscular Hemoglobin 29 pg (25-35) Mean Corpuscular Hemoglobin Concent 33 g/dL (31-37) Red Cell Distribution Width 13.9 % (11.5-14.5) Platelet Count 151 x10^3/uL (140-400) Neutrophils (%) (Auto) 68 % (31-73) Lymphocytes (%) (Auto) 22 % (24-48) Monocytes (%) (Auto) 9 % (0-9) Eosinophils (%) (Auto) 0 % (0-3) Basophils (%) (Auto) 1 % (0-3) Neutrophils # (Auto) 6.4 x10^3/uL (1.8-7.7) Lymphocytes # (Auto) 2.1 x10^3/uL (1.0-4.8) Monocytes # (Auto) 0.9 x10^3/uL (0.0-1.1) Eosinophils # (Auto) 0.0 x10^3/uL (0.0-0.7) Basophils # (Auto) 0.1 x10^3/uL (0.0-0.2) Sodium Level 140 mmol/L (136-145) Potassium Level 4.3 mmol/L (3.5-5.1) Chloride Level 106 mmol/L (98-107) Carbon Dioxide Level 24 mmol/L (21-32) Anion Gap 10 (6-14) Blood Urea Nitrogen 16 mg/dL (8-26) Creatinine 1.2 mg/dL (0.7-1.3) Estimated GFR (Cockcroft-Gault) 73.5 Glucose Level 109 mg/dL (70-99) Calcium Level 8.7 mg/dL (8.5-10.1) Total Bilirubin 0.7 mg/dL (0.2-1.0) Direct Bilirubin 0.2 mg/dL (0.0-0.2) Aspartate Amino Transf (AST/SGOT) 16 U/L (15-37) Alanine Aminotransferase (ALT/SGPT) 23 U/L (16-63) Alkaline Phosphatase 124 U/L (46-116) Creatine Kinase 99 U/L (39-308) Troponin I High Sensitivity 50 ng/L (4-75) 41 ng/L (4-75) WE-Oqz-A-Type Natriuretic Peptide 3218 pg/mL (0-124) Total Protein 7.0 g/dL (6.4-8.2) Albumin 3.3 g/dL (3.4-5.0) Laboratory Tests Test 02/07/21 06:55 02/07/21 07:15 02/07/21 13:30 Influenza Type A Antigen Negative (NEGATIVE) Influenza Type B Antigen Negative (NEGATIVE) SARS-CoV-2 Antigen (Rapid) Negative (NEGATIVE) White Blood Count 9.5 x10^3/uL (4.0-11.0) Red Blood Count 5.90 x10^6/uL (4.30-5.70) Hemoglobin 17.0 g/dL (13.0-17.5) Hematocrit 51.5 % (39.0-53.0) Mean Corpuscular Volume 87 fL (79-100) Mean Corpuscular Hemoglobin 29 pg (25-35) Mean Corpuscular Hemoglobin Concent 33 g/dL (31-37) Red Cell Distribution Width 13.9 % (11.5-14.5) Platelet Count 151 x10^3/uL (140-400) Neutrophils (%) (Auto) 68 % (31-73) Lymphocytes (%) (Auto) 22 % (24-48) Monocytes (%) (Auto) 9 % (0-9) Eosinophils (%) (Auto) 0 % (0-3) Basophils (%) (Auto) 1 % (0-3) Neutrophils # (Auto) 6.4 x10^3/uL (1.8-7.7) Lymphocytes # (Auto) 2.1 x10^3/uL (1.0-4.8) Monocytes # (Auto) 0.9 x10^3/uL (0.0-1.1) Eosinophils # (Auto) 0.0 x10^3/uL (0.0-0.7) Basophils # (Auto) 0.1 x10^3/uL (0.0-0.2) Sodium Level 140 mmol/L (136-145) Potassium Level 4.3 mmol/L (3.5-5.1) Chloride Level 106 mmol/L (98-107) Carbon Dioxide Level 24 mmol/L (21-32) Anion Gap 10 (6-14) Blood Urea Nitrogen 16 mg/dL (8-26) Creatinine 1.2 mg/dL (0.7-1.3) Estimated GFR (Cockcroft-Gault) 73.5 Glucose Level 109 mg/dL (70-99) Calcium Level 8.7 mg/dL (8.5-10.1) Total Bilirubin 0.7 mg/dL (0.2-1.0) Direct Bilirubin 0.2 mg/dL (0.0-0.2) Aspartate Amino Transf (AST/SGOT) 16 U/L (15-37) Alanine Aminotransferase (ALT/SGPT) 23 U/L (16-63) Alkaline Phosphatase 124 U/L (46-116) Creatine Kinase 99 U/L (39-308) Troponin I High Sensitivity 50 ng/L (4-75) 41 ng/L (4-75) IP-Rws-Y-Type Natriuretic Peptide 3218 pg/mL (0-124) Total Protein 7.0 g/dL (6.4-8.2) Albumin 3.3 g/dL (3.4-5.0) Images: Images PROCEDURE: PORTABLE CHEST 1V XR CHEST 1V Clinical Indication: Reason: soa, dizzy when lying flat / Spl. Instructions: / History: Comparison: AP chest October 21, 2016. Findings: The cardiomediastinal silhouette is normal. There are diffuse bilateral interstitial opacities. There are Jacqueline B lines in the right lung base. There is no pneumothorax. No pleural effusion is appreciated. No acute bone abnormality. IMPRESSION: Diffuse bilateral interstitial opacities may be pulmonary edema. Interstitial pneumonia a secondary consideration. PROCEDURE: CT HEAD WO CONTRAST EXAM: CT head without contrast INDICATION: Dizziness COMPARISON: CT head 10/21/2016 TECHNIQUE: Axial CT imaging through the head without intravenous contrast. One or more of the following individualized dose reduction techniques were utilized for this examination: 1. Automated exposure control 2. Adjustment of the mA and/or kV according to patient size 3. Use of iterative reconstruction technique. FINDINGS: The ventricles and sulci are prominent. There is unchanged mild periventricular and deep white matter hypoattenuation. Unchanged old lacunar infarct in the right basal ganglia. No intracranial hemorrhage, acute infarct, or mass lesion. There is a mucosal retention cyst in the left maxillary sinus. Mild mucosal thickening in the right maxillary sinus. Mastoid air cells are clear. The calvarium is intact. Globes and orbits are intact. IMPRESSION: 1. No acute intracranial abnormality. 2. Unchanged mild volume loss and and chronic microvascular ischemic changes. Assessment/Plan Assessment/Plan Acute hypertensive urgency Acute dyspnea concerning for acute CHF exacerbation Elevated BNP suggestive of Acute volume overload versus chronic hypoxia from COPD History of COPD, unknown GOLD stage History of hypertension History of tobacco misuse Admit to hospitalist service for further management Cardiology consult Lasix IV 40 mg daily as needed Strict I's and O's Lovenox for DVT prophylaxis Cardiac diet CODE STATUS full Discussed with RN and SW Disposition inpatient management as above DPOA: Montse Sharma, mother Smoking cessation: Total time spent was 12 minutes in face to face counseling. Patient has agreed to consider nicotine patches/gum or to start on Varnicline when discharged In addition to my E/M visit, advance care planning done with A total time of 20 minutes was spent from 1:00 to 120 face to face in discussion regarding the patient's goals of care, CODE STATUS. Justifications for Admission Other Justification GABINO MATA MD Feb 07, 2021 15:48
[2021-02-07] MEDS: ASPIRIN ENTERIC COATED 81 MG TABLET.DR. PO SCH (18:10)
[2021-02-07] MEDS: METOPROLOL SUCC 24HR ER 25 MG TAB.ER.24H. PO SCH (18:11)
[2021-02-07] MEDS: LOSARTAN POTASSIUM 50 MG TABLET. PO SCH (18:11)
[2021-02-07 19:00] VITALS: BP 138/82
[2021-02-07] MEDS: ENOXAPARIN 40 MG/0.4 ML SYRINGE. SQ SCH (21:46)
[2021-02-07 22:55] VITALS: BP 146/93
[2021-02-08] VITALS (8 sets, daily range): BP systolic 134–164; BP diastolic 84–114
[2021-02-08 05:06] LABS: BASO % 0 % (0-3); EOS # 0.1 x10^3/uL (0.0-0.7); EOS % 1 % (0-3); HEMATOCRIT 52.1 % (39.0-53.0); HEMOGLOBIN 17.3 g/dL (13.0-17.5); LYMPH # 2.7 x10^3/uL (1.0-4.8); LYMPH % 31 % (24-48); MEAN CORPUSCULAR HEMOGLOBIN 29 pg (25-35); MEAN CORPUSCULAR HGB CONC 33 g/dL (31-37); MEAN CORPUSCULAR VOLUME 88 fL (79-100); MONO # 0.9 x10^3/uL (0.0-1.1); MONO % 10 % (0-9); NEUT # 4.9 x10^3/uL (1.8-7.7); NEUT % 57 % (31-73); PLATELET COUNT 165 x10^3/uL (140-400); RED BLOOD COUNT 5.96 x10^6/uL (4.30-5.70); RED CELL DISTRIBUTION WIDTH 14.3 % (11.5-14.5); WHITE BLOOD COUNT 8.6 x10^3/uL (4.0-11.0)
[2021-02-08 05:31] LABS: CALCIUM 8.7 mg/dL (8.5-10.1); CREATININE 1.3 mg/dL (0.7-1.3); MAGNESIUM 2.4 mg/dL (1.8-2.4); PHOSPHORUS 3.6 mg/dL (2.6-4.7); POTASSIUM 3.8 mmol/L (3.5-5.1)
[2021-02-08] MEDS: LOSARTAN POTASSIUM 50 MG TABLET. PO SCH (09:55)
[2021-02-08] MEDS: METOPROLOL SUCC 24HR ER 25 MG TAB.ER.24H. PO SCH (09:56)
[2021-02-08] MEDS: PANTOPRAZOLE 40 MG TABLET.DR. PO SCH (09:56)
[2021-02-08] MEDS: ASPIRIN ENTERIC COATED 81 MG TABLET.DR. PO SCH (09:56)
[2021-02-08] MEDS: FUROSEMIDE 40 MG/4 ML VIAL. IVP SCH ×2 (09:57→14:26)
--- NOTE | 2021-02-08 10:34 | NUR ---
SW following. Discussed with RN, pt from home alone, room air, cardiac diet, ad christin, COVID-19 negative. RN advised no SW needs at this time. SW will continue to follow.
--- NOTE | 2021-02-08 13:29 | PDOC ---
[facility] [facility] PROGRESS NOTE Date of Service DOS: DATE: 02/08/21 TIME: 13:24 Chief Complaint Chief Complaint Acute hypertensive urgency Acute dyspnea concerning for acute CHF exacerbation Elevated BNP suggestive of Acute volume overload versus chronic hypoxia from COPD History of COPD, unknown GOLD stage History of hypertension History of tobacco misuse Cardiology consult Lasix IV 40 mg BID Strict I's and O's Lovenox for DVT prophylaxis Cardiac diet Add Combivent for COPD history. Ideally will discharge on something like Symbicort, Advair etc CODE STATUS full Discussed with RN and SW Disposition inpatient management as above DPOA: Montse Sharma, mother History of Present Illness History of Present Illness 65-year-old female with past medical history of hypertension, COPD, GERD who comes in with shortness of breath for the past week. There is orthopnea and exertional dyspnea. Progressively worsened. No lower extremity edema. He also endorses some dizziness upon exertion. No history of CHF in the past. In the ED blood pressure was 198/97. Saturating 93% on room air. Denies chest pain, palpitations, syncope, nausea vomiting, fevers chills, diarrhea, dysuria or hematuria. Of note, Patient is not vaccinated for Covid 02/08 Patient evaluated examined at bedside. He was on room air resting in bed. Says he was still having shortness of breath but does feel it is improving. Being diuresed per cardiology. Patient is still an active smoker says he previously was on home inhalers but just stopped going to his doctor. We will start him on the Combivent inhaler here to treat any underlying COPD. Follow cardiology recommendations. PT OT ordered as he said he is having difficulty with his ADLs at home. Plan of care discussed with bedside RN. Vitals/I&O Vitals/I&O: Vital Signs Date Time Temp Pulse Resp B/P (MAP) Pulse Ox O2 Delivery O2 Flow Rate FiO2 02/08/21 11:00 98.5 77 20 150/94 (112) 100 Room Air 98.5 02/07/21 20:00 2.0 I & O 02/07/21 02/07/21 02/08/21 15:00 23:00 07:00 Intake Total 0 ml 0 ml Balance 0 ml 0 ml Physical Exam General: Alert, Oriented X3, Cooperative, mild distress Heart: Regular rate (SR with frequent PVCs) Abdomen: Soft Extremities: Other (trace pedal edema ) Skin: No significant lesion Labs Labs: Laboratory Tests Test 02/07/21 13:30 02/08/21 03:50 Troponin I High Sensitivity 41 ng/L (4-75) White Blood Count 8.6 x10^3/uL (4.0-11.0) Red Blood Count 5.96 x10^6/uL (4.30-5.70) Hemoglobin 17.3 g/dL (13.0-17.5) Hematocrit 52.1 % (39.0-53.0) Mean Corpuscular Volume 88 fL (79-100) Mean Corpuscular Hemoglobin 29 pg (25-35) Mean Corpuscular Hemoglobin Concent 33 g/dL (31-37) Red Cell Distribution Width 14.3 % (11.5-14.5) Platelet Count 165 x10^3/uL (140-400) Neutrophils (%) (Auto) 57 % (31-73) Lymphocytes (%) (Auto) 31 % (24-48) Monocytes (%) (Auto) 10 % (0-9) Eosinophils (%) (Auto) 1 % (0-3) Basophils (%) (Auto) 0 % (0-3) Neutrophils # (Auto) 4.9 x10^3/uL (1.8-7.7) Lymphocytes # (Auto) 2.7 x10^3/uL (1.0-4.8) Monocytes # (Auto) 0.9 x10^3/uL (0.0-1.1) Eosinophils # (Auto) 0.1 x10^3/uL (0.0-0.7) Basophils # (Auto) 0.0 x10^3/uL (0.0-0.2) Sodium Level 140 mmol/L (136-145) Potassium Level 3.8 mmol/L (3.5-5.1) Chloride Level 106 mmol/L (98-107) Carbon Dioxide Level 25 mmol/L (21-32) Anion Gap 9 (6-14) Blood Urea Nitrogen 21 mg/dL (8-26) Creatinine 1.3 mg/dL (0.7-1.3) Estimated GFR (Cockcroft-Gault) 67.0 Glucose Level 87 mg/dL (70-99) Calcium Level 8.7 mg/dL (8.5-10.1) Phosphorus Level 3.6 mg/dL (2.6-4.7) Magnesium Level 2.4 mg/dL (1.8-2.4) Assessment and Plan Assessmemt and Plan Problems Medical Problems: (1) Bigeminy Status: Acute (2) Dyspnea Status: Acute (3) Person under investigation for COVID-19 Status: Acute (4) Pulmonary edema Status: Acute (5) Uncontrolled hypertension Status: Acute Comment Review of Relevant I have reviewed the following items hannah (where applicable) has been applied. Medications: Current Medications Medications (Trade) Dose Ordered Sig/Tameka Route PRN Reason Start Time Stop Time Status Last Admin Dose Admin Potassium Chloride (Klor-Con) 20 meq 1X ONCE PO 02/07/21 14:00 02/07/21 14:01 DC 02/07/21 18:10 Furosemide (Lasix) 40 mg BID92 IVP 02/08/21 09:00 02/08/21 09:57 Amlodipine Besylate (Norvasc) 10 mg DAILY PO 02/07/21 15:00 02/08/21 09:56 Metoprolol Succinate (Toprol Xl) 25 mg DAILY PO 02/07/21 15:00 02/08/21 09:56 Pantoprazole Sodium (Protonix) 40 mg DAILYAC PO 02/08/21 07:30 02/08/21 09:56 Losartan Potassium (Cozaar) 100 mg DAILY PO 02/07/21 15:00 02/08/21 09:55 Aspirin (Ecotrin) 81 mg DAILYWBKFT PO 02/07/21 15:00 02/08/21 09:56 Lorazepam (Ativan) 0.5 mg PRN Q6HRS PRN PO ANXIETY / AGITATION 02/07/21 15:45 02/07/21 23:19 Enoxaparin Sodium (Lovenox 40mg Syringe) 40 mg Q24H SQ 02/07/21 21:00 02/07/21 21:46 Justifications for Admission Other Justification CHF exacerbation, hypertensive urgency MARYCARMEN HARVEY MD Feb 08, 2021 13:29
[2021-02-08] MEDS ORDERED: METOPROLOL SUCC 24HR ER 25 MG TAB.ER.24H. PO ONE (14:00)
--- NOTE | 2021-02-08 14:00 | PDOC ---
DAYAMI REGAN LICENSED AND CERTIFIED MIDWIFE 02/08/21 1400: CARDIO Progress Notes Date and Time Date of Service 02/09/2016 Time of Evaluation 1100 Subjective Subjective: No Chest Pain, No shortness of breath, No Palpitations Vitals Vitals Vital Signs Date Time Temp Pulse Resp B/P (MAP) Pulse Ox O2 Delivery O2 Flow Rate FiO2 02/08/21 11:00 98.5 77 20 150/94 (112) 100 Room Air 98.5 02/07/21 20:00 2.0 Weight Weight [ ] Input and Output Intake and Output Intake and Output 02/08/21 07:00 Intake Total 0 ml Balance 0 ml Intake Oral 0 ml Laboratory Labs Laboratory Tests Test 02/08/21 03:50 White Blood Count 8.6 x10^3/uL (4.0-11.0) Red Blood Count 5.96 x10^6/uL (4.30-5.70) Hemoglobin 17.3 g/dL (13.0-17.5) Hematocrit 52.1 % (39.0-53.0) Mean Corpuscular Volume 88 fL (79-100) Mean Corpuscular Hemoglobin 29 pg (25-35) Mean Corpuscular Hemoglobin Concent 33 g/dL (31-37) Red Cell Distribution Width 14.3 % (11.5-14.5) Platelet Count 165 x10^3/uL (140-400) Neutrophils (%) (Auto) 57 % (31-73) Lymphocytes (%) (Auto) 31 % (24-48) Monocytes (%) (Auto) 10 % (0-9) Eosinophils (%) (Auto) 1 % (0-3) Basophils (%) (Auto) 0 % (0-3) Neutrophils # (Auto) 4.9 x10^3/uL (1.8-7.7) Lymphocytes # (Auto) 2.7 x10^3/uL (1.0-4.8) Monocytes # (Auto) 0.9 x10^3/uL (0.0-1.1) Eosinophils # (Auto) 0.1 x10^3/uL (0.0-0.7) Basophils # (Auto) 0.0 x10^3/uL (0.0-0.2) Sodium Level 140 mmol/L (136-145) Potassium Level 3.8 mmol/L (3.5-5.1) Chloride Level 106 mmol/L (98-107) Carbon Dioxide Level 25 mmol/L (21-32) Anion Gap 9 (6-14) Blood Urea Nitrogen 21 mg/dL (8-26) Creatinine 1.3 mg/dL (0.7-1.3) Estimated GFR (Cockcroft-Gault) 67.0 Glucose Level 87 mg/dL (70-99) Calcium Level 8.7 mg/dL (8.5-10.1) Phosphorus Level 3.6 mg/dL (2.6-4.7) Magnesium Level 2.4 mg/dL (1.8-2.4) Physical Exam HEENT: Neck Supple W Full Motion Chest: Symmetric LUNGS: Other (diminished bases) Heart: S1S2, RRR (SR) Abdomen: Soft N/T Extremities: No Calf Tenderness Neurology: alert, oriented, follow commands Assessment Assessment 1. Acute respiratory failure secondary to CHF, AECOPD with continued tobaccoism. discussed/encouraged cessation 2. Acute systolic CHF: appears compensated 3. Cardiomyopathy: EF at 30-35%, new possible from cocaine abuse 4. Hypertensive urgency 4. Arrhythmia; bigeminal PVC's due to CM 6. Hx of Cocaine abuse Recommendations 1. Continue lasix therapy, smoking cessation 2. UDS today. if + then would need abstain and will consider for outpt ischemic workup. If + for cocaine then would stop metoprolol and will change. 3. STart regimen per GDMT Secondary prevention measures 4. Continue lasix therapy 5. FLP statin per level 6. Anticipate DC tomorrow. Justicifation of Admission Dx: Justifications for Admission: Justification of Admission Dx: Yes DANYELL VILLASENOR MD 02/08/21 1434: CARDIO Progress Notes Assessment Assessment Patient seen and examined. Agree with HAUNTED HISTORY TOUR GUIDE's assessment and plan. Acute respiratory failure secondary to combination of acute COPD exacerbation and acute systolic heart failure Acute systolic heart failure better compensated with diuresis. 2D echo showed LVEF 30 to 35% Plan ischemic evaluation outpatient Continue management of acute COPD exacerbation per primary team Blood pressure better controlled since admission DAYAMI REGAN APRN Feb 08, 2021 14:00 DANYELL VILLASENOR MD Feb 08, 2021 14:34
[2021-02-08] MEDS: IPRATROPIUM/ALBUTEROL 20/100mcg/INH INHALER. INH SCH ×3 (14:26→20:00)
[2021-02-08 14:39] LABS: CHOLESTEROL/HDL RATIO 4.3
--- NOTE | 2021-02-08 17:35 | CARD ---
MR#: [id number] Date of Study: 02/08/2021 Ordering Physician: ARIANNE GALLARDO, Referring Physician: ARIANNE GALLARDO, Tech: Kacey Whitney [facility] APPROVED REPORT EXAM: Two-dimensional and M-mode echocardiogram with Doppler and color Doppler. Other Information Quality : GoodHR: 71bpm Rhythm : PVC's INDICATION Dyspnea Chest Pain RISK FACTORS Hypertension Hyperlipidemia 2D DIMENSIONS RVDd4.0 (2.9-3.5cm)Left Atrium(2D)4.6 (1.6-4.0cm) IVSd1.5 (0.7-1.1cm)Aortic Root(2D)3.9 (2.0-3.7cm) LVDd5.6 (3.9-5.9cm)LVOT Diameter2.4 (1.8-2.4cm) PWd1.5 (0.7-1.1cm)LVDs4.9 (2.5-4.0cm) FS (%) 13.7 %SV45.0 ml LVEF(%)28.9 (>50%) Aortic Valve AoV Peak Sd.141.4cm/sAoV VTI27.4cm AO Peak GR.8.0mmHgLVOT Peak Sd.126.2cm/s AO Mean GR.4mmHgAVA (VMAX)4.10cm2 Tricuspid Valve TR P. [id number]/sTR Peak Gr.29mmHg LEFT VENTRICLE The Left Ventricle is borderline dilated. There is mild concentric left ventricular hypertrophy. The systolic function is mildly impaired. EF 40-45%. Frequent PVC's preclude accurate assessment. There i s global hypokinesis of the left ventricle. Tissue Doppler imaging reveals moderate left ventricular diastolic dysfunction. RIGHT VENTRICLE The right ventricle is normal size. There is normal right ventricular wall thickness. The right ventr icular systolic function is normal. ATRIA The left atrium size is normal. The right atrium size is normal. The interatrial septum is intact wit h no evidence for an atrial septal defect or patent foramen ovale as noted on 2-D or Doppler imaging. AORTIC VALVE The aortic valve is normal in structure and function. Doppler and Color Flow revealed trace aortic re gurgitation. There is no significant aortic valvular stenosis. MITRAL VALVE The mitral valve is normal in structure and function. There is no evidence of mitral valve prolapse. There is no mitral valve stenosis. Doppler and Color-flow revealed moderate to severe eccentric poste riorly directed mitral regurgitation. TRICUSPID VALVE The tricuspid valve is normal in structure and function. Doppler and Color Flow revealed mild tricusp id regurgitation. Estimated PAP 32 mmHg. There is no tricuspid valve stenosis. PULMONIC VALVE Doppler and Color Flow revealed no pulmonic valvular regurgitation. There is no pulmonic valvular aj nosis. GREAT VESSELS The aortic root is mildly enlarged at 3.9 cm. The ascending aorta is normal in size. The IVC is francy l in size and collapses >50% with inspiration. PERICARDIAL EFFUSION There is no evidence of significant pericardial effusion. Critical Notification Critical Value: No <Conclusion> The systolic function is mildly impaired. EF 40-45%. Frequent PVC's preclude accurate assessment. There is global hypokinesis of the left ventricle. Doppler and Color-flow revealed moderate to severe eccentric posteriorly directed mitral regurgitatio n. The aortic root is mildly enlarged at 3.9 cm. Signed by : Kirit Medrano, Electronically Approved : 02/08/2021 17:34:25
[2021-02-08 17:38] LABS: BARBITURATES NEG (NEG); BENZODIAZEPINES NEG (NEG); CANNABINOIDS NEG (NEG); COCAINE NEG (NEG); METHADONE NEG (NEG); OPIATES NEG (NEG); PHENCYCLIDINE NEG (NEG)
[2021-02-08 17:43] LABS: AMPHETAMINE/METHAMPHETAMINE NEG (NEG)
[2021-02-08] MEDS: ENOXAPARIN 40 MG/0.4 ML SYRINGE. SQ SCH (21:09)
[2021-02-08] MEDS: ATORVASTATIN CALCIUM 20 MG TABLET PO SCH (21:09)
[2021-02-09 03:00] VITALS: BP 140/78
[2021-02-09 06:49] LABS: BASO % 0 % (0-3); EOS # 0.1 x10^3/uL (0.0-0.7); EOS % 1 % (0-3); HEMATOCRIT 56.4 % (39.0-53.0); HEMOGLOBIN 18.7 g/dL (13.0-17.5); LYMPH # 2.7 x10^3/uL (1.0-4.8); LYMPH % 32 % (24-48); MEAN CORPUSCULAR HEMOGLOBIN 29 pg (25-35); MEAN CORPUSCULAR HGB CONC 33 g/dL (31-37); MEAN CORPUSCULAR VOLUME 88 fL (79-100); MONO # 0.9 x10^3/uL (0.0-1.1); MONO % 11 % (0-9); NEUT # 4.8 x10^3/uL (1.8-7.7); NEUT % 56 % (31-73); PLATELET COUNT 150 x10^3/uL (140-400); RED BLOOD COUNT 6.44 x10^6/uL (4.30-5.70); WHITE BLOOD COUNT 8.4 x10^3/uL (4.0-11.0)
[2021-02-09 07:00] VITALS: BP 127/91
[2021-02-09 07:00] LABS: CREATININE 1.5 mg/dL (0.7-1.3); GFR 56.8; MAGNESIUM 2.7 mg/dL (1.8-2.4); POTASSIUM 3.6 mmol/L (3.5-5.1)
--- NOTE | 2021-02-09 07:52 | NUR ---
lying in bed. showered early this am. states he hasn't slept all night. weight obtained-93kg. states he is dizzy when up. Addendum: 02/09/21 at 0754 by ELVIS KLEIN RN basilia moreno and Pita (director) are responsible for the tele on this patient
[2021-02-09] MEDS: ENOXAPARIN 40 MG/0.4 ML SYRINGE. SQ SCH (08:29)
[2021-02-09] MEDS: PANTOPRAZOLE 40 MG TABLET.DR. PO SCH (08:30)
[2021-02-09] MEDS: ASPIRIN ENTERIC COATED 81 MG TABLET.DR. PO SCH (08:30)
[2021-02-09] MEDS: METOPROLOL SUCC 24HR ER 50 MG TAB.ER.24H. PO SCH (08:30)
[2021-02-09] MEDS: LOSARTAN POTASSIUM 50 MG TABLET. PO SCH (08:31)
[2021-02-09] MEDS: IPRATROPIUM/ALBUTEROL 20/100mcg/INH INHALER. INH SCH ×4 (08:32→21:20)
[2021-02-09] MEDS: FUROSEMIDE 40 MG/4 ML VIAL. IVP SCH (08:32)
[2021-02-09 11:00] VITALS: BP 139/104
--- NOTE | 2021-02-09 12:12 | PDOC ---
[facility] PROGRESS NOTE Date of Service DOS: DATE: 02/09/21 TIME: 12:11 Chief Complaint Chief Complaint Acute hypertensive urgency Acute dyspnea concerning for acute CHF exacerbation Elevated BNP suggestive of Acute volume overload versus chronic hypoxia from COPD History of COPD, unknown GOLD stage History of hypertension History of tobacco misuse Cardiology consult Lasix IV 40 mg BID Strict I's and O's Lovenox for DVT prophylaxis Cardiac diet Add Combivent for COPD history. Ideally will discharge on something like Symbicort, Advair etc CODE STATUS full Discussed with RN and SW Disposition inpatient management as above DPOA: Montse Sharma, mother History of Present Illness History of Present Illness 65-year-old female with past medical history of hypertension, COPD, GERD who comes in with shortness of breath for the past week. There is orthopnea and exertional dyspnea. Progressively worsened. No lower extremity edema. He also endorses some dizziness upon exertion. No history of CHF in the past. In the ED blood pressure was 198/97. Saturating 93% on room air. Denies chest pain, palpitations, syncope, nausea vomiting, fevers chills, diarrhea, dysuria or hematuria. Of note, Patient is not vaccinated for Covid 02/08 Patient evaluated examined at bedside. He was on room air resting in bed. Says he was still having shortness of breath but does feel it is improving. Being diuresed per cardiology. Patient is still an active smoker says he previously was on home inhalers but just stopped going to his doctor. We will start him on the Combivent inhaler here to treat any underlying COPD. Follow cardiology recommendations. PT OT ordered as he said he is having difficulty with his ADLs at home. Plan of care discussed with bedside RN. 02/09 Patient evaluated examined at bedside. Says his breathing is continuing to improve. Says he was able to get up and shower himself today. Continue diures is. Cardiology following. PT OT ordered. Possible discharge in next couple of days Vitals/I&O Vitals/I&O: Vital Signs Date Time Temp Pulse Resp B/P (MAP) Pulse Ox O2 Delivery O2 Flow Rate FiO2 02/09/21 08:31 70 127/91 02/09/21 08:00 Room Air 02/09/21 07:00 97.6 16 95 97.6 02/08/21 23:00 99.0 I & O 02/08/21 02/08/21 02/09/21 15:00 23:00 07:00 Intake Total 240 ml Output Total 400 ml Balance -160 ml Physical Exam General: Alert, Oriented X3, Cooperative, mild distress Heart: Regular rate (SR with frequent PVCs) Lungs: Clear Abdomen: Soft Extremities: Other (trace pedal edema ) Skin: No significant lesion Labs Labs: Laboratory Tests Test 02/08/21 16:15 02/09/21 05:00 Urine Opiates Screen Neg (NEG) Urine Methadone Screen Neg (NEG) Urine Barbiturates Neg (NEG) Urine Phencyclidine Screen Neg (NEG) Urine Amphetamine/Methamphetamine Neg (NEG) Urine Benzodiazepines Screen Neg (NEG) Urine Cocaine Screen Neg (NEG) Urine Cannabinoids Screen Neg (NEG) Urine Ethyl Alcohol Neg (NEG) White Blood Count 8.4 x10^3/uL (4.0-11.0) Red Blood Count 6.44 x10^6/uL (4.30-5.70) Hemoglobin 18.7 g/dL (13.0-17.5) Hematocrit 56.4 % (39.0-53.0) Mean Corpuscular Volume 88 fL (79-100) Mean Corpuscular Hemoglobin 29 pg (25-35) Mean Corpuscular Hemoglobin Concent 33 g/dL (31-37) Red Cell Distribution Width 14.0 % (11.5-14.5) Platelet Count 150 x10^3/uL (140-400) Neutrophils (%) (Auto) 56 % (31-73) Lymphocytes (%) (Auto) 32 % (24-48) Monocytes (%) (Auto) 11 % (0-9) Eosinophils (%) (Auto) 1 % (0-3) Basophils (%) (Auto) 0 % (0-3) Neutrophils # (Auto) 4.8 x10^3/uL (1.8-7.7) Lymphocytes # (Auto) 2.7 x10^3/uL (1.0-4.8) Monocytes # (Auto) 0.9 x10^3/uL (0.0-1.1) Eosinophils # (Auto) 0.1 x10^3/uL (0.0-0.7) Basophils # (Auto) 0.0 x10^3/uL (0.0-0.2) Sodium Level 139 mmol/L (136-145) Potassium Level 3.6 mmol/L (3.5-5.1) Chloride Level 103 mmol/L (98-107) Carbon Dioxide Level 26 mmol/L (21-32) Anion Gap 10 (6-14) Blood Urea Nitrogen 29 mg/dL (8-26) Creatinine 1.5 mg/dL (0.7-1.3) Estimated GFR (Cockcroft-Gault) 56.8 Glucose Level 89 mg/dL (70-99) Calcium Level 9.0 mg/dL (8.5-10.1) Magnesium Level 2.7 mg/dL (1.8-2.4) Assessment and Plan Assessmemt and Plan Problems Medical Problems: (1) Bigeminy Status: Acute (2) Dyspnea Status: Acute (3) Person under investigation for COVID-19 Status: Acute (4) Pulmonary edema Status: Acute (5) Uncontrolled hypertension Status: Acute Comment Review of Relevant I have reviewed the following items hannah (where applicable) has been applied. Medications: Current Medications Medications (Trade) Dose Ordered Sig/Tameka Route PRN Reason Start Time Stop Time Status Last Admin Dose Admin Metoprolol Succinate (Toprol Xl) 50 mg DAILY PO 02/09/21 09:00 02/09/21 08:30 Metoprolol Succinate (Toprol Xl) 25 mg 1X ONCE PO 02/08/21 14:00 02/08/21 14:01 DC 02/08/21 14:26 Atorvastatin Calcium (Lipitor) 20 mg QHS PO 02/08/21 21:00 02/08/21 21:09 Justifications for Admission Other Justification CHF exacerbation, hypertensive urgency MARYCARMEN HARVEY MD Feb 09, 2021 12:12
--- NOTE | 2021-02-09 13:43 | PDOC ---
DAYAMI REGAN OVEN DAUBER 02/09/21 1343: CARDIO Progress Notes Date and Time Date of Service 02/09/2021 Time of Evaluation 1330 Subjective Subjective: No Chest Pain, No shortness of breath, No Palpitations Vitals Vitals Vital Signs Date Time Temp Pulse Resp B/P (MAP) Pulse Ox O2 Delivery O2 Flow Rate FiO2 02/09/21 11:00 97.4 68 16 139/104 (116) 99 Room Air 97.4 02/08/21 23:00 99.0 Weight Weight [ ] Input and Output Intake and Output Intake and Output 02/09/21 07:00 Intake Total 240 ml Output Total 400 ml Balance -160 ml Intake Oral 240 ml Output Urine Total 400 ml Laboratory Labs Laboratory Tests Test 02/08/21 16:15 02/09/21 05:00 Urine Opiates Screen Neg (NEG) Urine Methadone Screen Neg (NEG) Urine Barbiturates Neg (NEG) Urine Phencyclidine Screen Neg (NEG) Urine Amphetamine/Methamphetamine Neg (NEG) Urine Benzodiazepines Screen Neg (NEG) Urine Cocaine Screen Neg (NEG) Urine Cannabinoids Screen Neg (NEG) Urine Ethyl Alcohol Neg (NEG) White Blood Count 8.4 x10^3/uL (4.0-11.0) Red Blood Count 6.44 x10^6/uL (4.30-5.70) Hemoglobin 18.7 g/dL (13.0-17.5) Hematocrit 56.4 % (39.0-53.0) Mean Corpuscular Volume 88 fL (79-100) Mean Corpuscular Hemoglobin 29 pg (25-35) Mean Corpuscular Hemoglobin Concent 33 g/dL (31-37) Red Cell Distribution Width 14.0 % (11.5-14.5) Platelet Count 150 x10^3/uL (140-400) Neutrophils (%) (Auto) 56 % (31-73) Lymphocytes (%) (Auto) 32 % (24-48) Monocytes (%) (Auto) 11 % (0-9) Eosinophils (%) (Auto) 1 % (0-3) Basophils (%) (Auto) 0 % (0-3) Neutrophils # (Auto) 4.8 x10^3/uL (1.8-7.7) Lymphocytes # (Auto) 2.7 x10^3/uL (1.0-4.8) Monocytes # (Auto) 0.9 x10^3/uL (0.0-1.1) Eosinophils # (Auto) 0.1 x10^3/uL (0.0-0.7) Basophils # (Auto) 0.0 x10^3/uL (0.0-0.2) Sodium Level 139 mmol/L (136-145) Potassium Level 3.6 mmol/L (3.5-5.1) Chloride Level 103 mmol/L (98-107) Carbon Dioxide Level 26 mmol/L (21-32) Anion Gap 10 (6-14) Blood Urea Nitrogen 29 mg/dL (8-26) Creatinine 1.5 mg/dL (0.7-1.3) Estimated GFR (Cockcroft-Gault) 56.8 Glucose Level 89 mg/dL (70-99) Calcium Level 9.0 mg/dL (8.5-10.1) Magnesium Level 2.7 mg/dL (1.8-2.4) Physical Exam HEENT: Neck Supple W Full Motion Chest: Symmetric LUNGS: Other (diminished bases) Heart: S1S2, RRR (SR with frequent PVCs) Abdomen: Soft N/T Extremities: No Calf Tenderness Neurology: alert, oriented, follow commands Assessment Assessment 1. Acute respiratory failure secondary to CHF, AECOPD with continued tobaccoism. discussed/encouraged cessation 2. Acute systolic CHF: appears compensated 3. Cardiomyopathy: EF at 40-45%, new possibly from cocaine abuse 4. Hypertensive urgency: controlled 4. Arrhythmia; bigeminal PVC's due to CM 6. Hx of Cocaine abuse: last use a week ago 7. Arrhythmia: appears to have high PVC burden Recommendations 1. Continue lasix therapy and K replacement. 2. He would need need abstain and will consider for outpt ischemic workup. MPI vs LHC. 3. Discussed complete abstinence from cocaine and tobacco 4. Continue HF regimen per GDMT Secondary prevention measures 5. Follow up in office in 2-3 weeks 6. MCOT to note PVC burden Justicifation of Admission Dx: Justifications for Admission: Justification of Admission Dx: Yes DANYELL VILLASENOR MD 02/09/21 5152: CARDIO Progress Notes Assessment Assessment Patient seen and examined. Agree with [employer]'s assessment and plan. Acute respiratory failure secondary to combination of acute COPD exacerbation and acute systolic heart failure Acute systolic heart failure better compensated with diuresis. 2D echo showed LVEF 40-45% Plan ischemic evaluation probably with cardiac cath as outpatient Continue management of acute COPD exacerbation per primary team Blood pressure better controlled since admission Agree with event monitor upon DC to evaluate PVC burden DAYAMI REGAN APRN Feb 09, 2021 13:43 DANYELL VILLASENOR MD Feb 09, 2021 18:12
--- NOTE | 2021-02-09 14:14 | RAD ---
XR CHEST 1V History: CHF Comparison: 02/07/2021 Technique: Portable AP radiograph of the chest. Findings: The lungs are adequately inflated. Persistent but decreased prominence of the pulmonary interstitial markings and vasculature. No focal airspace consolidation. No pleural effusion or pneumothorax. Cardi omediastinal silhouette is normal in size. Calcifications of the aorta. No acute osseous abnormality. Soft tissues are unremarkable. Impression: 1. Improving pulmonary interstitial edema. Electronically signed by: Jorge A Muñiz MD (02/09/2021 2:12 PM) [id number]
--- NOTE | 2021-02-09 14:56 | NUR ---
6 Minute Walk ordered but patient is not near ready for discharge according to ARIEL Powers RT will follow patient.
[2021-02-09 15:00] VITALS: BP 132/74
[2021-02-09 19:39] VITALS: BP 124/87
--- NOTE | 2021-02-09 21:15 | NUR ---
Pt refusing tele at this time, says "it's tearing my skin off." Educated pt on need for tele monitoring while in hospital, but pt still refusing. Will place when pt agreeable.
[2021-02-09] MEDS: ATORVASTATIN CALCIUM 20 MG TABLET PO SCH (21:16)
[2021-02-09 23:08] VITALS: BP 131/91
[2021-02-10 03:02] LABS: BASO % 0 % (0-3); EOS # 0.1 x10^3/uL (0.0-0.7); EOS % 1 % (0-3); HEMATOCRIT 54.8 % (39.0-53.0); LYMPH # 2.8 x10^3/uL (1.0-4.8); LYMPH % 29 % (24-48); MEAN CORPUSCULAR HEMOGLOBIN 29 pg (25-35); MEAN CORPUSCULAR HGB CONC 33 g/dL (31-37); MEAN CORPUSCULAR VOLUME 88 fL (79-100); MONO % 10 % (0-9); NEUT # 5.7 x10^3/uL (1.8-7.7); NEUT % 59 % (31-73); PLATELET COUNT 166 x10^3/uL (140-400); RED BLOOD COUNT 6.21 x10^6/uL (4.30-5.70); WHITE BLOOD COUNT 9.6 x10^3/uL (4.0-11.0)
[2021-02-10 03:14] LABS: CALCIUM 8.8 mg/dL (8.5-10.1); CREATININE 1.6 mg/dL (0.7-1.3); GFR 52.8; MAGNESIUM 2.5 mg/dL (1.8-2.4); POTASSIUM 3.6 mmol/L (3.5-5.1)
[2021-02-10 07:00] VITALS: BP 140/95
[2021-02-10] MEDS: IPRATROPIUM/ALBUTEROL 20/100mcg/INH INHALER. INH SCH ×3 (07:30→15:54)
[2021-02-10] MEDS: ASPIRIN ENTERIC COATED 81 MG TABLET.DR. PO SCH (07:30)
[2021-02-10] MEDS: PANTOPRAZOLE 40 MG TABLET.DR. PO SCH (07:30)
[2021-02-10] MEDS ORDERED: FUROSEMIDE 40 MG/4 ML VIAL. IVP ONE (07:30)
[2021-02-10] MEDS ORDERED: POTASSIUM CHLORIDE 20 MEQ TABLET.ER. PO SCH (08:00)
--- NOTE | 2021-02-10 08:12 | PDOC ---
DAYAMI REGAN PHILOSOPHY LECTURER 02/10/21 0812: CARDIO Progress Notes Date and Time Date of Service 02/10/2021 Time of Evaluation 1200 Subjective Subjective: No Chest Pain, No shortness of breath, No Palpitations Vitals Vitals Vital Signs Date Time Temp Pulse Resp B/P (MAP) Pulse Ox O2 Delivery O2 Flow Rate FiO2 02/10/21 07:38 Room Air 02/09/21 23:08 97.4 66 18 131/91 (104) 97 97.4 Weight Weight [ ] Input and Output Intake and Output Intake and Output 02/10/21 07:00 Intake Total 840 ml Output Total 1250 ml Balance -410 ml Intake Oral 840 ml Output Urine Total 1250 ml # Voids 1 Laboratory Labs Laboratory Tests Test 02/10/21 02:25 White Blood Count 9.6 x10^3/uL (4.0-11.0) Red Blood Count 6.21 x10^6/uL (4.30-5.70) Hemoglobin 18.0 g/dL (13.0-17.5) Hematocrit 54.8 % (39.0-53.0) Mean Corpuscular Volume 88 fL (79-100) Mean Corpuscular Hemoglobin 29 pg (25-35) Mean Corpuscular Hemoglobin Concent 33 g/dL (31-37) Red Cell Distribution Width 14.0 % (11.5-14.5) Platelet Count 166 x10^3/uL (140-400) Neutrophils (%) (Auto) 59 % (31-73) Lymphocytes (%) (Auto) 29 % (24-48) Monocytes (%) (Auto) 10 % (0-9) Eosinophils (%) (Auto) 1 % (0-3) Basophils (%) (Auto) 0 % (0-3) Neutrophils # (Auto) 5.7 x10^3/uL (1.8-7.7) Lymphocytes # (Auto) 2.8 x10^3/uL (1.0-4.8) Monocytes # (Auto) 1.0 x10^3/uL (0.0-1.1) Eosinophils # (Auto) 0.1 x10^3/uL (0.0-0.7) Basophils # (Auto) 0.0 x10^3/uL (0.0-0.2) Sodium Level 139 mmol/L (136-145) Potassium Level 3.6 mmol/L (3.5-5.1) Chloride Level 102 mmol/L (98-107) Carbon Dioxide Level 28 mmol/L (21-32) Anion Gap 9 (6-14) Blood Urea Nitrogen 37 mg/dL (8-26) Creatinine 1.6 mg/dL (0.7-1.3) Estimated GFR (Cockcroft-Gault) 52.8 Glucose Level 117 mg/dL (70-99) Calcium Level 8.8 mg/dL (8.5-10.1) Magnesium Level 2.5 mg/dL (1.8-2.4) Physical Exam HEENT: Neck Supple W Full Motion Chest: Symmetric LUNGS: Other (diminished bases) Heart: S1S2, RRR (off tele) Abdomen: Soft N/T Extremities: No Calf Tenderness Neurology: alert, oriented, follow commands Assessment Assessment 1. Acute respiratory failure secondary to CHF, AECOPD with continued to baccoism. discussed/encouraged cessation 2. Acute systolic CHF: appears compensated 3. Cardiomyopathy: EF at 40-45%, new possibly from cocaine abuse 4. Hypertensive urgency: controlled 4. Arrhythmia; bigeminal PVC's due to CM 6. Hx of Cocaine abuse: last use a week ago 7. ALIYAH Recommendations 1. Continue lasix therapy and K replacement. xtra IV lasix today. BMP today 2. He would need need abstain and will consider for outpt ischemic workup. MPI vs LHC. 3. Discussed complete abstinence from cocaine and tobacco 4. Continue HF regimen per GDMT Secondary prevention measures 5. Follow up in office in 2-3 weeks 6. MCOT to note PVC burden Justicifation of Admission Dx: Justifications for Admission: Justification of Admission Dx: Yes DANYELL VILLASENOR MD 02/11/21 4110: CARDIO Progress Notes Assessment Assessment Patient seen and examined 02/10/2021. Agree with [employer]'s assessment and plan. Acute respiratory failure secondary to combination of acute COPD exacerbation and acute systolic heart failure Acute systolic heart failure better compensated with diuresis. 2D echo showed LVEF 40-45% Plan ischemic evaluation probably with cardiac cath as outpatient Continue management of acute COPD exacerbation per primary team Blood pressure better controlled since admission Agree with event monitor upon DC to evaluate PVC burden Importance of abstinence from cocaine abuse reemphasized DAYAMI REGAN APRN Feb 10, 2021 08:12 DANYELL VILLASENOR MD Feb 11, 2021 09:25
[2021-02-10] MEDS: METOPROLOL SUCC 24HR ER 50 MG TAB.ER.24H. PO SCH (09:00)
[2021-02-10] MEDS ORDERED: FUROSEMIDE 40 MG TABLET. PO SCH (09:00)
[2021-02-10] MEDS: LOSARTAN POTASSIUM 50 MG TABLET. PO SCH (09:43)
--- NOTE | 2021-02-10 10:13 | NUR ---
SW following. Discussed with RN, pt from home alone, room air, cardiac diet, COVID-19 negative. Therapy recommending home. Possible discharge home today. RN advised no SW needs at this time. SW will continue to follow.
[2021-02-10 11:00] VITALS: BP 124/90
[2021-02-10 12:21] LABS: CALCIUM 8.9 mg/dL (8.5-10.1); CREATININE 1.5 mg/dL (0.7-1.3); GFR 56.8; POTASSIUM 3.9 mmol/L (3.5-5.1)
[2021-02-10] MEDS ORDERED: METO50TA4 PO (14:43)
[2021-02-10] MEDS ORDERED: ATOR20TA58 PO (14:43)
[2021-02-10] MEDS ORDERED: FURO40TA4 PO (14:43)
[2021-02-10] MEDS ORDERED: POTA20TA4 PO (14:43)
--- NOTE | 2021-02-10 14:45 | PDOC3 ---
[facility]-Discharge Summary Date of Admission: Date of Admission: Feb 07, 2021 Date of Discharge: Date of Discharge: Feb 10, 2021 Admission Diagnosis: Problems: (1) Pulmonary edema Discharge Diagnosis: Discharge Diagnosis: Same Consults: Consults: Cardiology Hospital Course: Hospital Course: Chief Complaint Acute hypertensive urgency Acute dyspnea concerning for acute CHF exacerbation Elevated BNP suggestive of Acute volume overload versus chronic hypoxia from COPD History of COPD, unknown GOLD stage History of hypertension History of tobacco misuse Cardiology consult Lasix IV 40 mg BID Strict I's and O's Lovenox for DVT prophylaxis Cardiac diet Add Combivent for COPD history. Ideally will discharge on something like Symbicort, Advair etc CODE STATUS full Discussed with RN and SW Disposition inpatient management as above DPOA: Montse Sharma, mother History of Present Illness History of Present Illness 65-year-old female with past medical history of hypertension, COPD, GERD who comes in with shortness of breath for the past week. There is orthopnea and exertional dyspnea. Progressively worsened. No lower extremity edema. He also endorses some dizziness upon exertion. No history of CHF in the past. In the ED blood pressure was 198/97. Saturating 93% on room air. Denies chest pain, palpitations, syncope, nausea vomiting, fevers chills, diarrhea, dysuria or hematuria. Of note, Patient is not vaccinated for Covid 02/08 Patient evaluated examined at bedside. He was on room air resting in bed. Says he was still having shortness of breath but does feel it is improving. Being diuresed per cardiology. Patient is still an active smoker says he previously was on home inhalers but just stopped going to his doctor. We will start him on the Combivent inhaler here to treat any underlying COPD. Follow cardiology recommendations. PT OT ordered as he said he is having difficulty with his ADLs at home. Plan of care discussed with bedside RN. 02/09 Patient evaluated examined at bedside. Says his breathing is continuing to improve. Says he was able to get up and shower himself today. Continue diuresis. Cardiology following. PT OT ordered. Possible discharge in next couple of days 02/10 Patient evaluated and examined at bedside. Breathing notably improved. Good fo r discharge today. Outpatient cardiology follow-up. I spent greater than 30 minutes on the discharge of this patient. 21 minutes of advance care planning discussed with this patient. Disposition: Disposition/Orders: D/C to Home Activity: Activity: Resume previous activity Diet: Diet: 2 gr sodium, Cardiac Medications: Home Meds Active Scripts Potassium Chloride (POTASSIUM CHLORIDE ) 20 Meq Tablet.er, 20 MEQ PO DAILYWBKFT for hypokalemia for 30 Days, #30 TAB.SR Prov:MARYCARMEN HARVEY MD 02/10/21 Furosemide (FUROSEMIDE) 40 Mg Tablet, 40 MG PO DAILY for CHF for 30 Days, #30 TAB Prov:MARYCARMEN HARVEY MD 02/10/21 Metoprolol Succinate (Toprol XL) 50 Mg Tab.er.24h, 50 MG PO DAILY for HTN for 30 Days, #30 TAB.SR Prov:MARYCARMEN HARVEY MD 02/10/21 Atorvastatin Calcium (ATORVASTATIN CALCIUM) 20 Mg Tablet, 20 MG PO QHS for HPLD for 30 Days, #30 TAB Prov:MARYCARMEN HARVEY MD 02/10/21 Meclizine Hcl (MECLIZINE HCL) 25 Mg Tablet, 1 TAB PO PRN TID PRN for DIZZINESS, #12 TAB Prov:ASUNCION BOND DO 10/21/16 Reported Medications Omeprazole (OMEPRAZOLE) 20 Mg Capsule.dr, 20 MG PO DAILY, CAP 10/18/14 Amlodipine Besylate (AMLODIPINE BESYLATE) 10 Mg Tablet, 10 MG PO DAILY, TAB 10/18/14 Valsartan (DIOVAN) 320 Mg Tablet, 320 MG PO DAILY, TAB 10/18/14 Discontinued Reported Medications Metoprolol Succinate (METOPROLOL SUCCINATE ( XL )) 25 Mg Tab.er.24h, 25 MG PO DAILY for FOR HYPERTENSION, #30 TAB 0 Refills 10/18/14 Discontinued Scripts Cephalexin (KEFLEX) 500 Mg Capsule, 1 CAP PO TID for 7 Days, #21 CAP Prov:YAJAIRA JOHNSON R D MANAGER 07/22/18 Scheduled Amlodipine Besylate (Amlodipine Besylate), 10 MG PO DAILY, (Reported) Atorvastatin Calcium (Atorvastatin Calcium), 20 MG PO QHS Furosemide (Furosemide), 40 MG PO DAILY Metoprolol Succinate (Toprol XL), 50 MG PO DAILY Omeprazole (Omeprazole), 20 MG PO DAILY, (Reported) Potassium Chloride (Potassium Chloride ), 20 MEQ PO DAILYWBKFT Valsartan (Diovan), 320 MG PO DAILY, (Reported) Scheduled PRN Meclizine Hcl (Meclizine Hcl), 1 TAB PO PRN TID PRN for DIZZINESS Discontinued Medications Cephalexin (Keflex), 1 CAP PO TID Metoprolol Succinate (Metoprolol Succinate ( Xl )), 25 MG PO DAILY, (Reported) Justicifation of Admission Dx: Justifications for Admission: Justification of Admission Dx: Yes MARYCARMEN HARVEY MD Feb 10, 2021 14:45
[2021-02-10 15:00] VITALS: BP 127/89
--- NOTE | 2021-02-10 18:03 | NUR ---
Pt left unit at 1800 by wheelchair via cab. Pt's IV removed without complication, VSS. Discharge paperwork, including medications, follow-up, teaching on pulmonary edema discussed with pt. Additional questions addressed.
== END 2021-02-10 18:05 | disposition home or self-care (01) | DRG 291 ==
LOC: ER 06:23 → ED HOLD 09:19 → 5 NORTH 12:57
PROVIDERS: ADMIT Internal Medicine; ATTEND Internal Medicine
DX: I11.0 Hypertensive heart disease with heart failure (principal); I50.43 Acute on chronic combined systolic (congestive) and diastolic (congestive) heart failure; J96.00 Acute respiratory failure, unspecified whether with hypoxia or hypercapnia; J44.1 Chronic obstructive pulmonary disease with (acute) exacerbation; J84.9 Interstitial pulmonary disease, unspecified; N17.9 Acute kidney failure, unspecified; I16.0 Hypertensive urgency; I42.9 Cardiomyopathy, unspecified; F17.210 Nicotine dependence, cigarettes, uncomplicated; I49.3 Ventricular premature depolarization; Z20.822 Contact with and (suspected) exposure to COVID-19; Z82.49 Family history of ischemic heart disease and other diseases of the circulatory system; Z86.73 Personal history of transient ischemic attack (TIA), and cerebral infarction without residual deficits; F14.10 Cocaine abuse, uncomplicated; K21.9 Gastro-esophageal reflux disease without esophagitis; Z71.6 Tobacco abuse counseling; Z88.0 Allergy status to penicillin
CPT/HCPCS: 36415; 70450; 71045; 80048; 80061; 80076; 80307; 82550; 83735; 83880; 84100; 84443; 84484; 85025; 87426; 87804; 93005; 93306; 96374; 96375; J0360; J1650; J1940; U0003; U0005; 97110-GP; 97116-GP; 97530-GP; 97535-GO; 99285-25; G0378

== ENCOUNTER → 2021-02-14 | Outpatient (CLI) | payer MEDICARE ==
[2021-02-10 15:00] VITALS: BP 127/89
[~2021-02-14] MED LIST changes: +ATOR20TA58 PO; +FURO40TA4 PO; +METO50TA4 PO; +POTA20TA4 PO
[2021-02-14 14:04] LABS: CALCIUM 8.7 mg/dL (8.5-10.1); CREATININE 1.4 mg/dL (0.7-1.3); GFR 61.5; POTASSIUM 4.2 mmol/L (3.5-5.1)
== END ==
LOC: LAB 13:13
PROVIDERS: ATTEND Nurse Practitioner
DX: I50.22 Chronic systolic (congestive) heart failure (principal)
CPT/HCPCS: 36415; 80048